=== PATIENT | male | born 1980 | race Caucasian/White ===

== ENCOUNTER 2020-08-11 13:29 | Outpatient (CLI) | payer SELFPAY | END 2020-08-11 13:30 | disposition critical access hospital (66) | LOC: EMS 13:29 | PROVIDERS: ATTEND Surgery | DX: S06.9X1A Unspecified intracranial injury with loss of consciousness of 30 minutes or less, initial encounter (principal); V13.4XXA Pedal cycle driver injured in collision with car, pick-up truck or van in traffic accident, initial encounter; Y93.55 Activity, bike riding; Y92.410 Unspecified street and highway as the place of occurrence of the external cause | CPT/HCPCS: A0425; A0427 ==

== ENCOUNTER 2020-08-11 14:36 | Emergency (ER) | payer SELFPAY ==
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
[2020-08-11 14:52] LABS: BASOPHILS # (AUTO) 0.1 10^3/uL (0.0-0.1); BASOPHILS % (AUTO) 1.4 %; EOSINOPHILS # (AUTO) 0.1 10^3/uL (0.0-0.7); EOSINOPHILS % (AUTO) 1.2 %; LYMPHOCYTES # (AUTO) 1.6 10^3/uL (1.5-3.5); LYMPHOCYTES % (AUTO) 31.7 %; MEAN CORPUSCULAR HEMOGLOBIN 34.9 pg (27.0-31.0); MEAN CORPUSCULAR VOLUME 102.7 fL (80.0-94.0); MEAN PLATELET VOLUME 8.6 fL (7.4-11.4); MONOCYTES # (AUTO) 0.6 10^3/uL (0.0-1.0); MONOCYTES % (AUTO) 11.7 %; NEUTROPHILS # (AUTO) 2.8 10^3/uL (1.5-6.6); NEUTROPHILS % (AUTO) 53.8 %; PLT - PLATELET COUNT 179 10^3/uL (130-450); RED BLOOD COUNT 4.01 10^6/uL (4.70-6.10); RED CELL DISTRIBUTION WIDTH 12.5 % (12.0-15.0); WHITE BLOOD COUNT 5.1 x10^3/uL (4.8-10.8)
[2020-08-11 14:58] LABS: PT - PROTHROMBIN TIME 10.9 secs (9.9-12.6)
[2020-08-11 15:00] LABS: CALCIUM 8.6 mg/dL (8.5-10.3); CREATININE 0.7 mg/dL (0.6-1.2)
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
--- NOTE | 2020-08-11 15:17 | CT Report ---
PROCEDURE: HEAD WO INDICATIONS: head injury TECHNIQUE: Noncontrast 4.5 mm thick angled axial sections acquired from the foramen magnum to the vertex. For r adiation dose reduction, the following was used: automated exposure control, adjustment of mA and/or kV according to patient size. COMPARISON: None. FINDINGS: Image quality: Excellent. CSF spaces: Basal cisterns are patent. No extra-axial fluid collections. Ventricles are normal in size and shape. Brain: No midline shift. No intracranial masses or hemorrhage. Mckenzie-white matter interface is norm al. Skull and face: Calvarium and visualized facial bones are intact, without suspicious lesions. Left t emporal scalp laceration and hematoma. Sinuses: Visualized sinuses and mastoids are clear. IMPRESSION: 1. Left temporal scalp hematoma and laceration. 2. Negative for acute stroke, hemorrhage, or mass. No evidence of significant sequelae of acute intra cranial trauma. Reviewed by: Roderick Simpson MD on 08/11/2020 3:16 PM PDT Approved by: Roderick Simpson MD on 08/11/2020 3:16 PM PDT Station ID: [id number]
[2020-08-11 16:34] VITALS: BP 119/80
== END 2020-08-11 16:42 | disposition home or self-care (01) ==
LOC: EDUNIT# → ED 14:36
DX: S01.81XA Laceration without foreign body of other part of head, initial encounter (principal); S06.0X1A Concussion with loss of consciousness of 30 minutes or less, initial encounter; R40.2412 Glasgow coma scale score 13-15, at arrival to emergency department; V89.2XXA Person injured in unspecified motor-vehicle accident, traffic, initial encounter; Y93.55 Activity, bike riding; Y92.410 Unspecified street and highway as the place of occurrence of the external cause; F10.129 Alcohol abuse with intoxication, unspecified; F17.200 Nicotine dependence, unspecified, uncomplicated; Y90.8 Blood alcohol level of 240 mg/100 ml or more
CPT/HCPCS: 12013; 36415; 70450; 72125; 80048; 80320; 85025; 85610; 99283; 99284

== ENCOUNTER 2021-06-21 16:29 | Outpatient (CLI) | payer MEDICAID | END 2021-06-21 16:30 | disposition critical access hospital (66) | LOC: EMS 16:29 | DX: R40.4 Transient alteration of awareness (principal); R51.9 Headache, unspecified; V18.4XXA Pedal cycle driver injured in noncollision transport accident in traffic accident, initial encounter; Y93.55 Activity, bike riding; Y92.410 Unspecified street and highway as the place of occurrence of the external cause | CPT/HCPCS: A0425; A0429; A0999 ==

== ENCOUNTER 2021-06-21 17:02 | Emergency (ER) | payer MEDICAID ==
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
[2021-06-21] MEDS ORDERED: IBUPROFEN 600 MG TABLET PO STA (17:11)
[2021-06-21] MEDS ORDERED: ACETAMINOPHEN 325 MG TABLET PO STA (17:11)
[2021-06-21 17:28] LABS: BASOPHILS # (AUTO) 0.1 10^3/uL (0.0-0.1); BASOPHILS % (AUTO) 1.7 %; EOSINOPHILS # (AUTO) 0.1 10^3/uL (0.0-0.7); EOSINOPHILS % (AUTO) 1.7 %; HCT - HEMATOCRIT 39.2 % (42.0-52.0); HGB - HEMOGLOBIN 13.3 g/dL (14.0-18.0); LYMPHOCYTES # (AUTO) 1.4 10^3/uL (1.5-3.5); LYMPHOCYTES % (AUTO) 40.6 %; MEAN CORPUSCULAR HEMOGLOBIN 33.9 pg (27.0-31.0); MEAN CORPUSCULAR HGB CONC 33.9 g/dL (32.0-36.0); MONOCYTES # (AUTO) 0.6 10^3/uL (0.0-1.0); MONOCYTES % (AUTO) 15.9 %; NEUTROPHILS # (AUTO) 1.4 10^3/uL (1.5-6.6); NEUTROPHILS % (AUTO) 39.8 %; PLT - PLATELET COUNT 128 10^3/uL (130-450); RED BLOOD COUNT 3.92 10^6/uL (4.70-6.10); RED CELL DISTRIBUTION WIDTH 13.1 % (12.0-15.0); WHITE BLOOD COUNT 3.5 x10^3/uL (4.8-10.8)
[2021-06-21 17:41] LABS: ALBUMIN 4.1 g/dL (3.2-5.5); ALBUMIN/GLOBULIN RATIO 1.1 (1.0-2.2); BILIRUBIN,TOTAL 0.5 mg/dL (0.2-1.0); CALCIUM 8.6 mg/dL (8.5-10.3); CREATININE 0.6 mg/dL (0.6-1.2); POTASSIUM 3.8 mmol/L (3.5-5.0); TOTAL PROTEIN 7.7 g/dL (6.7-8.2)
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
[2021-06-21 18:07] VITALS: BP 124/98
== END 2021-06-21 18:06 | disposition home or self-care (01) ==
LOC: EDUNIT# → ED 17:02
DX: S06.0X1A Concussion with loss of consciousness of 30 minutes or less, initial encounter (principal); S42.034A Nondisplaced fracture of lateral end of right clavicle, initial encounter for closed fracture; S16.1XXA Strain of muscle, fascia and tendon at neck level, initial encounter; M79.652 Pain in left thigh; V18.0XXA Pedal cycle driver injured in noncollision transport accident in nontraffic accident, initial encounter; Y93.55 Activity, bike riding; Y92.410 Unspecified street and highway as the place of occurrence of the external cause; F10.920 Alcohol use, unspecified with intoxication, uncomplicated
CPT/HCPCS: 36415; 70450; 72125; 73030; 80053; 80320; 83690; 85025; 99284; A9270

== ENCOUNTER 2021-06-30 14:30 | Emergency (ER) | payer MEDICAID ==
[2021-06-30 14:48] VITALS: BP 116/74
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
== END 2021-06-30 16:34 | disposition home or self-care (01) ==
LOC: ED 14:30
DX: S80.12XA Contusion of left lower leg, initial encounter (principal); V19.9XXA Pedal cyclist (driver) (passenger) injured in unspecified traffic accident, initial encounter; Y93.55 Activity, bike riding; Y92.410 Unspecified street and highway as the place of occurrence of the external cause; F17.200 Nicotine dependence, unspecified, uncomplicated
CPT/HCPCS: 99281; 99284

== ENCOUNTER 2024-10-20 12:57 | Inpatient (IN) ==
[2024-10-20 13:43] LABS: BASOPHILS # (AUTO) 0.1 10^3/uL (0.0-0.1); BASOPHILS % (AUTO) 0.3 %; EOSINOPHILS # (AUTO) 0.4 10^3/uL (0.0-0.7); EOSINOPHILS % (AUTO) 1.5 %; HCT - HEMATOCRIT 36.7 % (42.0-52.0); HGB - HEMOGLOBIN 12.8 g/dL (14.0-18.0); LYMPHOCYTES # (AUTO) 1.6 10^3/uL (1.5-3.5); LYMPHOCYTES % (AUTO) 6.5 %; MEAN CORPUSCULAR HEMOGLOBIN 34.5 pg (27.0-31.0); MEAN CORPUSCULAR HGB CONC 34.9 g/dL (32.0-36.0); MEAN CORPUSCULAR VOLUME 98.9 fL (80.0-94.0); MEAN PLATELET VOLUME 9.4 fL (7.4-11.4); MONOCYTES # (AUTO) 1.9 10^3/uL (0.0-1.0); MONOCYTES % (AUTO) 7.7 %; NEUTROPHILS # (AUTO) 20.1 10^3/uL (1.5-6.6); NEUTROPHILS % (AUTO) 83.1 %; NRBC ABSOLUTE COUNT (AUTO) 0.08 x10^3/uL; NUCLEATED RED BLOOD CELLS AUTO 0.3 /100WBC; PLT - PLATELET COUNT 200 10^3/uL (130-450); RED BLOOD COUNT 3.71 10^6/uL (4.70-6.10); RED CELL DISTRIBUTION WIDTH 13.5 % (12.0-15.0); WHITE BLOOD COUNT 24.2 x10^3/uL (4.8-10.8)
[2024-10-20 13:50] LABS: SLIDE REVIEW? Indicated
[2024-10-20 13:57] LABS: ALBUMIN 3.5 g/dL (3.2-5.5); ALBUMIN/GLOBULIN RATIO 0.9 (1.0-2.2); ALKALINE PHOSPHATASE 129 IU/L (42-121); ALT ALANINE AMINOTRANSFERASE 20 IU/L (10-60); AST ASPARTATE AMINOTRANSFERASE 43 IU/L (10-42); BILIRUBIN,TOTAL 1.9 mg/dL (0.2-1.0); BUN - BLOOD UREA NITROGEN 6 mg/dL (6-20); CALCIUM 8.7 mg/dL (8.5-10.3); CARBON DIOXIDE - CO2 33 mmol/L (21-32); CHLORIDE 88 mmol/L (101-111); CREATININE 0.5 mg/dL (0.6-1.3); ETOH - ETHANOL < 10.0 mg/dL; GFR - MDRD 181 (>89); GLUCOSE 142 mg/dL (74-104); LIPASE 22 U/L (11-82); MAGNESIUM 1.5 mg/dL (1.7-2.3); POTASSIUM 2.7 mmol/L (3.5-4.5); SODIUM 132 mmol/L (135-145); TOTAL PROTEIN 7.3 g/dL (6.4-8.9)
[2024-10-20 14:01] LABS: PLATELET ESTIMATE, MANUAL NORMAL (130-450,000) (NORMAL); PLATELET MORPHOLOGY NORMAL APPEARANCE (NORMAL); RBC MORPHOLOGY (MULTIPLE) 2+ HYPOCHROMASIA (NORMAL)
[2024-10-20] MEDS: SODIUM CHLORIDE 0.9% 1,000 ML IV STA (14:11)
[2024-10-20 14:12] LABS: THYROID STIMULATING HORMONE 1.29 uIU/mL (0.34-5.60)
--- NOTE | 2024-10-20 15:06 | ED Physician Documentation ---
History of Present Illness Stated complaint Stated Complaint: ETOH N/V Chief complaint Chief Complaint: Abd Pain Additonal information Additional information: 44YO MALE WITH HX ETOH. SICK X 9 DAYS WITH SUBJECTIVE FEVERS, GENERALLY ILL, VOMITING. NO COUGH, SORE THROAT, BM CHG, SOA, ABD PAIN. LAST DRINK JUST BALL[employer]IST. Meds/Allgy Home Medications Ambulatory Orders Medication Instructions Recorded Confirmed No Known Home Medications 06/21/21 10/20/24 Allergies Allergies Allergy/AdvReac Type Severity Reaction Status Date / Time No Known Drug Allergies Allergy Verified 10/20/24 13:29 [facility] Medical History Medical History (Updated 10/20/24 @ 21:08 by Gianfranco Davis MD) IBS (irritable bowel syndrome) Social History Social History (Updated 10/20/24 @ 13:34 by Adam Melvin RN) Smoking Status: Current every day smoker Living arrangement: At home Living Condition: Alone and With spouse/s.o. Support Person: Yes Relationship: Significant other Do you feel safe in your home environment?: Yes Suffered physical, verbal, emotional, or financial abuse?: No History of Abuse: No ETOH Use: Frequency: Daily Number of Amount/day: 10 Substance Use: cannabis (any form) POLST Patient has POLST: No Exam Constitutional V MILD ENCEPHALOPATHY THIN HENMT normocephalic and oropharynx normal Eyes PERRL and EOMs intact bilaterally Respiratory DIMINISHED THROUGHOUT, MILD RHONCHI, NON LABORED Cardiovascular normal heart rate noted, regular rhythm noted and no murmur Gastrointestinal abdomen soft to palpation and nontender to palpation Neurology V MILD ENCEPHALOPATHY, NOT TREMULOUS Results Vitals Vitals: Vital Signs - 24 hr 10/20/24 13:30 10/20/24 13:35 10/20/24 15:35 Temperature 36 C L Temperature Source Temporal Artery Scan Pulse Rate 88 86 88 Respiratory Rate 18 18 16 Blood Pressure 137/85 H 109/82 115/82 O2 Saturation 98 98 99 O2 Source Room air Room air Room air Pain Intensity 0 2 0 10/20/24 17:35 10/20/24 19:13 Temperature Temperature Source Pulse Rate 89 90 Respiratory Rate 14 16 Blood Pressure 117/84 119/72 O2 Saturation 98 98 O2 Source Room air Room air Pain Intensity 0 0 Oxygen O2 Source Room air EKG (time done) 1341: EKG releavant findings:: EKG personally interpreted by author of this note. Relevant findings are: Normal sinus rhythm with a rate of 92. Short WV interval. IVCD, abnormal T waves and prolonged QT. In retrospect this could all be due to electrolyte issues. Labs Labs: Laboratory Tests 10/20/24 10/20/24 10/20/24 13:37 15:14 18:11 WBC 24.2 H 21.8 H RBC 3.71 L 3.60 L Hgb 12.8 L 12.6 L Hct 36.7 L 35.7 L MCV 98.9 H 99.2 H MCH 34.5 H 35.0 H MCHC 34.9 35.3 RDW 13.5 13.4 Plt Count 200 193 MPV 9.4 9.7 Neut # (Auto) 20.1 H Lymph # (Auto) 1.6 [place] # (Auto) 1.9 H Eos # (Auto) 0.4 Baso # (Auto) 0.1 Absolute Nucleated RBC 0.08 Nucleated RBC % 0.3 Manual Slide Review Indicated Platelet Estimate NORMAL (130-450,000) Platelet Morphology NORMAL APPEARANCE RBC Morph Micro Appear 2+ HYPOCHROMASIA VBG pH 7.485 H VBG pCO2 43.9 VBG pO2 26.1 VBG HCO3 32.3 H VBG Total CO2 33.7 H VBG O2 Saturation 44.9 L VBG Base Excess 8.0 H Sodium 132 L 132 L Potassium 2.7 L 2.9 L Chloride 88 L 91 L Carbon Dioxide 33 H 32 Anion Gap 11.0 9.0 BUN 6 5 L Creatinine 0.5 L 0.4 L Estimated GFR (MDRD) 181 234 Glucose 142 H 128 H Lactic Acid 2.2 Calcium 8.7 8.1 L Magnesium 1.5 L Total Bilirubin 1.9 H AST 43 H ALT 20 Alkaline Phosphatase 129 H Total Protein 7.3 Albumin 3.5 Globulin 3.8 Albumin/Globulin Ratio 0.9 L Lipase 22 Vitamin B12 432 Folate 3.5 L Procalcitonin Immunoas 0.36 TSH 1.29 Urine Color Urine Clarity Urine pH Ur Specific [place] Urine Protein Urine Glucose (UA) Urine Ketones Urine Occult Blood Urine Nitrite Urine Bilirubin Urine Urobilinogen Ur Leukocyte Esterase Ur Microscopic Review Urine Culture Comments Urine Opiates Screen Ur Buprenorphine Scrn Ur Oxycodone Screen Urine Methadone Screen Ur Barbiturates Screen Ur Tricyclics Screen Ur Phencyclidine Scrn Ur Amphetamine Screen U Methamphetamines Scrn U Benzodiazepines Scrn Urine Cocaine Screen U Cannabinoids Screen Ur Drug Screen Comment Ethyl Alcohol < 10.0 10/20/24 18:55 WBC RBC Hgb Hct MCV MCH MCHC RDW Plt Count MPV Neut # (Auto) Lymph # (Auto) [place] # (Auto) Eos # (Auto) Baso # (Auto) Absolute Nucleated RBC Nucleated RBC % Manual Slide Review Platelet Estimate Platelet Morphology RBC Morph Micro Appear VBG pH VBG pCO2 VBG pO2 VBG HCO3 VBG Total CO2 VBG O2 Saturation VBG Base Excess Sodium Potassium Chloride Carbon Dioxide Anion Gap BUN Creatinine Estimated GFR (MDRD) Glucose Lactic Acid Calcium Magnesium Total Bilirubin AST ALT Alkaline Phosphatase Total Protein Albumin Globulin Albumin/Globulin Ratio Lipase Vitamin B12 Folate Procalcitonin Immunoas TSH Urine Color DARK YELLOW Urine Clarity CLEAR Urine pH 7.0 Ur Specific [place] 1.015 Urine Protein NEGATIVE Urine Glucose (UA) 100 H Urine Ketones TRACE Urine Occult Blood NEGATIVE Urine Nitrite NEGATIVE Urine Bilirubin SMALL H Urine Urobilinogen >=8.0 H Ur Leukocyte Esterase NEGATIVE Ur Microscopic Review NOT INDICATED Urine Culture Comments NOT INDICATED Urine Opiates Screen NEGATIVE Ur Buprenorphine Scrn NEGATIVE Ur Oxycodone Screen NEGATIVE Urine Methadone Screen NEGATIVE Ur Barbiturates Screen NEGATIVE Ur Tricyclics Screen NEGATIVE Ur Phencyclidine Scrn NEGATIVE Ur Amphetamine Screen NEGATIVE U Methamphetamines Scrn NEGATIVE U Benzodiazepines Scrn NEGATIVE Urine Cocaine Screen NEGATIVE U Cannabinoids Screen POSITIVE H Ur Drug Screen Comment CUTOFF CONC BELOW: Ethyl Alcohol Rads (name of study) Single view chest x-ray showing mildly hyperexpanded lungs but no acute disease.: Relevant Findings:: Final report received and EMP independent interpretation of test CT Head- NAD: Relevant Findings:: Final report received and EMP independent interpretation of test PD Medical Decision Making ED course ED course: 44-year-old gentleman with alcoholism presents with nonspecific symptoms and is found to have significantly elevated white count, some fairly significant abnormal electrolytes, most notably sodium 132, potassium 2.7, magnesium 1.5. He was administered IV fluids. I do not see a source of infection, but the white count is concerning so blood cultures were drawn. Patient offered admission to the hospital but would like to go home, will give him a few K- riders and recheck a BMP. His repeat BMP showed improvement of his potassium. His folate was low and this was repleted IV. He was reexamined at 7 PM. He still said he wanted to go home but his girlfriend was at the bedside noted that he was quite confused and now. He was queried on location. He said he was in a house [address] [place]." And said that he was going on a plane to [place] when the girlfriend said there were no such plans. He was shaky and has nystagmus without ocular plegia otherwise. So now concern for differential DTs versus Warnicke encephalopathy. Will obtain CT imaging, give high-dose thiamine, Ativan, and plan for admission to the hospital. Spoke with Dr. Padgett for admission at 9:17 PM. He plans to put h him in the ICU concerned that he may decompensate in short order. The patient and family are counseled as to the diagnosis and need for admission. This document was made in part using voice recognition software, while efforts are made to proofread this document, sound alike an grammatical errors may occur. Discharge Plan Discharge Patient Disposition: [facility] DC/Xfer Condition: Serious Clinical Impression: Delirium tremens Prescriptions: No Action No Known Home Medications Print Language: Jordanian
[2024-10-20] MEDS: MAGNESIUM SULFATE 2 GRAM 2 GM/50 ML BAG IV ONE (15:18)
[2024-10-20] MEDS: POTASSIUM CHLOR 10 MEQ/100 ML 10 MEQ/100 ML BAG IV SCH ×2 (15:18→18:28)
--- NOTE | 2024-10-20 15:24 | XRAY Report ---
PROCEDURE: XR Chest 1V INDICATIONS: COUGH FEVER TECHNIQUE: One view of the chest was acquired. COMPARISON: None. FINDINGS: Surgical changes and devices: None. Lungs and pleura: No pleural effusions or pneumothorax. No consolidation. Mediastinum: Mediastinal contours appear normal. Heart size is normal. Bones and chest wall: No suspicious bony lesions. Overlying soft tissues appear unremarkable. IMPRESSION: No acute cardiopulmonary process. Reviewed by: Stevie Nuno MD on 10/20/2024 3:23 PM PST Approved by: Stevie Nuno MD on 10/20/2024 3:23 PM PST Station ID: [id number]
[2024-10-20 15:32] LABS: VBG PCO2 43.9 mmHg (41-51); VBG PH 7.485 (7.31-7.41)
[2024-10-20 15:33] LABS: VBG HCO3 32.3 mmol/L (23-28); VBG OXYGEN SATURATION 44.9 % (60-80); VBG PO2 26.1 mmHg (25-47); VBG TOTAL CO2 33.7 mmol/L (24-29)
[2024-10-20] MEDS ORDERED: POTASSIUM BICARB 25 MEQ TABLET PO STA (16:04)
[2024-10-20 18:15] LABS: HCT - HEMATOCRIT 35.7 % (42.0-52.0); HGB - HEMOGLOBIN 12.6 g/dL (14.0-18.0); MEAN CORPUSCULAR HGB CONC 35.3 g/dL (32.0-36.0); MEAN CORPUSCULAR VOLUME 99.2 fL (80.0-94.0); MEAN PLATELET VOLUME 9.7 fL (7.4-11.4); RED BLOOD COUNT 3.6 10^6/uL (4.70-6.10); RED CELL DISTRIBUTION WIDTH 13.4 % (12.0-15.0); WHITE BLOOD COUNT 21.8 x10^3/uL (4.8-10.8)
[2024-10-20 18:28] LABS: CALCIUM 8.1 mg/dL (8.5-10.3); CREATININE 0.4 mg/dL (0.6-1.3); POTASSIUM 2.9 mmol/L (3.5-4.5)
[2024-10-20] MEDS: FOLIC ACID 5 MG/1 ML 10ML MDV IVP STA (18:30)
[2024-10-20] MEDS: POTASSIUM BICARB 25 MEQ TABLET PO STA (18:31)
[2024-10-20 19:00] LABS: BILIRUBIN,URINE SMALL (NEGATIVE); GLUCOSE, URINE (UA) 100 mg/dL (NEGATIVE); KETONES,URINE (UA) TRACE mg/dL (NEGATIVE); LEUKOCYTE ESTERASE, URINE NEGATIVE (NEGATIVE); NITRITE,URINE NEGATIVE (NEGATIVE); OCCULT BLOOD,URINE NEGATIVE (NEGATIVE); PROTEIN,URINE NEGATIVE (NEGATIVE); UROBILINOGEN,URINE >=8.0 E.U./dL (NORMAL)
[2024-10-20 19:03] LABS: CLARITY,URINE CLEAR (CLEAR)
[2024-10-20 19:12] LABS: THC CANNABINOID SCREEN, URINE POSITIVE (NEGATIVE)
[2024-10-20 19:13] LABS: AMPHETAMINE SCREEN,URINE NEGATIVE (NEGATIVE); BARBITURATE SCREEN,UR NEGATIVE (NEGATIVE); BENZODIAZEPINES SCREEN, URINE NEGATIVE (NEGATIVE); BUPRENORPHINE SCREEN, URINE NEGATIVE (NEGATIVE); COCAINE SCREEN URINE NEGATIVE (NEGATIVE); METHADONE SCREEN, URINE NEGATIVE (NEGATIVE); METHAMPHETAMINES SCREEN, URINE NEGATIVE (NEGATIVE); OPIATE SCREEN, URINE NEGATIVE (NEGATIVE); OXYCODONE SCREEN, URINE NEGATIVE (NEGATIVE); TRICYCLIC ANTIDEPRESSANT,URINE NEGATIVE (NEGATIVE)
[2024-10-20] MEDS ORDERED: THIAMINE 100 MG/1 ML 2 ML MDV ONE (19:26)
[2024-10-20] MEDS: LORazepam 2 MG/ML VIAL IVP STA (19:31)
[2024-10-20] MEDS: THIAMINE INJ 500 MG in SODIUM CHLORIDE 0.9% 50 ML IV STA (19:31)
[2024-10-20] MEDS: NICOTINE 14 MG PATCH TOP STA (21:00)
--- NOTE | 2024-10-20 21:16 | CT Report ---
PROCEDURE: CT Head WO INDICATIONS: ams TECHNIQUE: Noncontrast 4.5 mm thick angled axial sections acquired from the foramen magnum to the vertex. For r adiation dose reduction, the following was used: automated exposure control, adjustment of mA and/or kV according to patient size. COMPARISON: CT head 06/21/21 FINDINGS: Image quality: Excellent. CSF spaces: Basal cisterns are patent. No extra-axial fluid collections. Ventricles are normal in size and shape. Brain: No midline shift. No intracranial masses or hemorrhage. Mckenzie-white matter interface is norm al. Skull and face: Calvarium and visualized facial bones are intact, without suspicious lesions. Sinuses: Visualized sinuses and mastoids are clear. IMPRESSION: No acute intracranial pathology. Reviewed by: Vaishnavi Gray MD on 10/20/2024 9:14 PM PST Approved by: Vaishnavi Gray MD on 10/20/2024 9:14 PM PST Station ID: [id number]
[2024-10-20] MEDS ORDERED: ONDANSETRON 4 MG/2 ML VIAL IVP PRN (21:21)
[2024-10-20] MEDS ORDERED: oxyCODONE 5 MG TABLET PO PRN (21:21)
--- NOTE | 2024-10-20 21:42 | HISTORY & PHYSICAL EXAMINATION ---
Chief Complaint Chief Complaint Chief Complaint: Not feeling welll History of Present Illness Admitted From Admitted From:: home History Obtained From Records Reviewed: Yes History obtained from: EMR and ED team Exam Limitations: Patient not able to engage in history was asleep History of Present Illness HPI Comment/Other: 44 yr male comes with complaints of not feeling well for last 9 days, no meds at home lives with girlfriend has been drinking in a daily basis, last drink prior to admission was initially thought to be dc home but later found to have luekocytosis and encpahopahty and is going to be admitted for observationfor impending DT as well as Leukocytosis and encphalopathy Paitent looks comfortable and resting when seen televideo Review of Systems Status of ROS: 10 or more systems reviewed and unremarkable except as noted in history and below [facility] Medical History Medical History (Updated 10/20/24 @ 21:08 by Gianfranco Davis MD) IBS (irritable bowel syndrome) Social History Social History Smoking Status: Current every day smoker Living arrangement: At home Living Condition: Alone and With spouse/s.o. Support Person: Yes Relationship: Significant other Do you feel safe in your home environment?: Yes Suffered physical, verbal, emotional, or financial abuse?: No History of Abuse: No ETOH Use: Frequency: Daily Number of Amount/day: 10 Substance Use: cannabis (any form) POLST Patient has POLST: No POLST Status: Full Code Meds/Allgy Home Medications Ambulatory Orders Medication Instructions Recorded Confirmed No Known Home Medications 06/21/21 10/20/24 Allergies Allergies Allergy/AdvReac Type Severity Reaction Status Date / Time No Known Drug Allergies Allergy Verified 10/20/24 13:29 Prior Level of Functionality: iNDEPENDENT WITH adl Exam Constitutional normal general appearance and no apparent distress Eyes PERRL and EOMs intact bilaterally Neck/C-Spine visual inspection normal and trachea midline Lymph no lymphadenopathy noted and no lymphedema noted Chest inspection of chest normal Respiratory breath sounds equal bilaterally, normal respiratory effort and clear to auscultation bilaterally Cardiovascular normal heart rate noted and regular rhythm noted Gastrointestinal abdomen normal to inspection and abdomen soft to palpation Genitourinary no CVA tenderness and bladder normal to palpation Extremities normal to inspection and normal to palpation Neurology nutter up II-XII intact and no movement abnormality noted Psychiatry uNABLE TO OBTAIN Skin skin color normal and no rash Conclusion/Plan Problem List (1) Delirium tremens: Plan: 44 YR MIDDLE age male admitted with impression 1. ETOH dependence 2.r/o htn 3. severe electrolyte imbalance 4. Leukocytosis 5. Generalized tremots and encepahlopathy Plan admit to ICU for close observation and one to one care repeat electroytes continue drive Ativan prn empiric abx follow up cultures optimizedelectrolytes downgrade cfromICU anticipated in next 24 hours SCD Full code Fall precuations Plan as above Lab Results Lab results reviewed: Yes 10/20/24 18:11 10/20/24 18:11
[2024-10-20] MEDS: NS W/20 MEQ KCL 1,000 ML IV SCH (22:36)
[2024-10-20] MEDS: SODIUM CHLORIDE FLUSH 0.9% 10 ML SYRINGE IVP PRN (22:36)
[2024-10-20] MEDS: PIPERACILLIN/TAZOBACTAM 3.375 GM in SODIUM CHLORIDE 0.9% MINIBAG 100 ML IV STA (22:53)
[2024-10-20] MEDS: VANCOMYCIN INJ 1 GM in SODIUM CHLORIDE 0.9% 500 ML IV STA (22:56)
[2024-10-20] MEDS: POTASSIUM CHLORIDE 20 MEQ TABLET PO STA (22:57)
[2024-10-21] MEDS: LORazepam 2 MG/ML VIAL IVP SCH (00:38)
[2024-10-21] MEDS: SODIUM CHLORIDE FLUSH 0.9% 10 ML SYRINGE IVP SCH (00:39)
[2024-10-21 04:44] LABS: VBG PH 7.527 (7.31-7.41)
[2024-10-21 04:45] LABS: CALCIUM, IONIZED 1.04 mmol/L (1.15-1.33)
[2024-10-21 04:47] LABS: BASOPHILS # (AUTO) 0.1 10^3/uL (0.0-0.1); BASOPHILS % (AUTO) 0.5 %; EOSINOPHILS # (AUTO) 0.5 10^3/uL (0.0-0.7); HGB - HEMOGLOBIN 10.9 g/dL (14.0-18.0); LYMPHOCYTES # (AUTO) 1.9 10^3/uL (1.5-3.5); LYMPHOCYTES % (AUTO) 11.3 %; MEAN CORPUSCULAR HEMOGLOBIN 34.5 pg (27.0-31.0); MEAN CORPUSCULAR HGB CONC 34.1 g/dL (32.0-36.0); MEAN CORPUSCULAR VOLUME 101.3 fL (80.0-94.0); MEAN PLATELET VOLUME 10.3 fL (7.4-11.4); MONOCYTES # (AUTO) 1.3 10^3/uL (0.0-1.0); MONOCYTES % (AUTO) 7.7 %; NEUTROPHILS # (AUTO) 12.8 10^3/uL (1.5-6.6); NEUTROPHILS % (AUTO) 76.5 %; NRBC ABSOLUTE COUNT (AUTO) 0.05 x10^3/uL; NUCLEATED RED BLOOD CELLS AUTO 0.3 /100WBC; PLT - PLATELET COUNT 179 10^3/uL (130-450); RED BLOOD COUNT 3.16 10^6/uL (4.70-6.10); RED CELL DISTRIBUTION WIDTH 13.8 % (12.0-15.0); WHITE BLOOD COUNT 16.8 x10^3/uL (4.8-10.8)
[2024-10-21 05:02] LABS: ALBUMIN 2.9 g/dL (3.2-5.5); ALBUMIN/GLOBULIN RATIO 0.9 (1.0-2.2); BILIRUBIN,TOTAL 1.2 mg/dL (0.2-1.0); CALCIUM 7.7 mg/dL (8.5-10.3); CREATININE 0.4 mg/dL (0.6-1.3); MAGNESIUM 1.9 mg/dL (1.7-2.3); POTASSIUM 3.6 mmol/L (3.5-4.5)
[2024-10-21] MEDS: CALCIUM GLUC 1,000MG/50ML-NACL 1,000 MG/50 ML BAG IV ONE ×2 (05:18→09:39)
[2024-10-21] MEDS: POTASSIUM CHLORIDE 20 MEQ TABLET PO ONE (06:10)
[2024-10-21] MEDS: PANTOPRAZOLE 40 MG TABLET PO SCH (06:10)
--- NOTE | 2024-10-21 09:03 | PROVIDER PROGRESS NOTE ---
Subjective Prog Note Date Prog Note Date: 10/21/24 Prog Note Time: 09:03 Subjective Subjective: 44 yr male comes with complaints of not feeling well for last 9 days, no meds at home lives with girlfriend has been drinking in a daily basis, last drink prior to admission was initially thought to be dc home but later found to have luekocytosis and encpahopahty and is going to be admitted for observationfor impending DT as well as Leukocytosis and encphalopathy Paitent looks comfortable and resting when seen televideo 10/21/2024: Patient is lethargic, he has no complaints. Patient Required 3 mg of Ativan over the last 16 hours. Current Medications Current Medications Current Medications: Current Medications Generic Name Dose Route Start Last Admin Trade Name Freq PRN Reason Stop Dose Admin Acetaminophen 650 mg 10/20/24 21:21 Acetaminophen 325 Mg Tablet PO Q4HR PRN Pain 1 to 4, or Fever Hydrocodone Bitart/Acetaminophen 1 tab 10/20/24 21:21 Hydrocod/Acetam 5/325 Mg Tablet PO Q4HR PRN Pain 5 to 7 Potassium Chloride/Sodium Chloride 1,000 mls @ 100 mls/hr 10/20/24 22:00 10/20/24 22:36 Normal Saline 0.9% W/20 Meq Kcl IV 100 mls/hr .Q10H SHARRON Administration Lorazepam 1 mg 10/21/24 00:00 10/21/24 06:11 Lorazepam 2 Mg/Ml Vial IVP 1 mg Q6HR SHARRON Administration Ondansetron HCl 4 mg 10/20/24 21:21 Ondansetron 4 Mg/2 Ml Vial IVP Q6HR PRN Nausea / Vomiting Oxycodone HCl 10 mg 10/20/24 21:21 Oxycodone 5 Mg Tablet PO Q4HR PRN Pain 8 to 10 Pantoprazole Sodium 40 mg 10/21/24 07:00 10/21/24 06:10 Pantoprazole 40 Mg Tablet PO 40 mg QDAC SHARRON Administration Sodium Chloride 10 ml 10/21/24 01:00 10/21/24 00:39 Sodium Chloride Flush 0.9% 10 Ml Syringe IVP 10 ml 0100,0900,1700 SHARRON Administration Sodium Chloride 10 ml 10/20/24 21:21 10/21/24 06:11 Sodium Chloride Flush 0.9% 10 Ml Syringe IVP 10 ml PRN PRN Administration NEEDED PER PROVIDER ORDERS Objective Vital Signs/Intake & Output Reviewed Vital Signs: Yes Vital Signs: Vital Signs x48h Temp Pulse Resp BP Pulse Ox 10/21/24 06:46 103 H 24 110/80 96 10/21/24 06:00 102 H 20 113/78 95 10/21/24 05:00 95 17 107/75 96 10/21/24 04:00 92 17 106/77 96 10/21/24 03:00 94 19 102/79 97 10/21/24 02:00 36.8 C 99 28 H 104/78 96 10/21/24 01:00 89 17 128/80 99 10/21/24 00:00 36.8 C 84 14 128/80 97 Intake & Output: Intake & Output 10/18/24 10/19/24 10/20/24 10/21/24 23:59 23:59 23:59 23:59 Intake Total 1450 / 1450 750 / 750 Output Total 500 / 500 Balance 1450 / 1450 250 / 250 Weight (kg) 60 kg 62 kg Objective General Appearance: positive No acute distress and Alert Eyes Bilateral: positive Normal inspection and PERRL ENT: positive ENT inspection nml and Pharynx nml Neck: positive Nml inspection and Trachea midline Respiratory: positive Chest non-tender and No respiratory distress Cardiovascular: positive Regular rate & rhythm and No murmur Abdomen: positive Non-tender, No organomegaly and No distention Skin: positive Color nml and No rash Extremities: positive Non-tender and Full ROM Neurologic/Psychiatric: positive Oriented x3 and CN's nml (2-12) Lab Results 10/21/24 04:18 10/21/24 04:18 Other Labs: Lab Results x24hrs 10/21/24 10/20/24 10/20/24 Range/Units 04:18 22:30 18:55 WBC 16.8 H (4.8-10.8) x10^3/uL RBC 3.16 L (4.70-6.10) 10^6/uL Hgb 10.9 L (14.0-18.0) g/dL Hct 32.0 L (42.0-52.0) % MCV 101.3 H (80.0-94.0) fL MCH 34.5 H (27.0-31.0) pg MCHC 34.1 (32.0-36.0) g/dL RDW 13.8 (12.0-15.0) % Plt Count 179 (130-450) 10^3/uL MPV 10.3 (7.4-11.4) fL Neut # (Auto) 12.8 H (1.5-6.6) 10^3/uL Lymph # (Auto) 1.9 (1.5-3.5) 10^3/uL [place] # (Auto) 1.3 H (0.0-1.0) 10^3/uL Eos # (Auto) 0.5 (0.0-0.7) 10^3/uL Baso # (Auto) 0.1 (0.0-0.1) 10^3/uL Absolute Nucleated RBC 0.05 x10^3/uL Nucleated RBC % 0.3 /100WBC Manual Slide Review Platelet Estimate (NORMAL) Platelet Morphology (NORMAL) RBC Morph Micro Appear (NORMAL) VBG pH 7.527 H (7.31-7.41) VBG pCO2 (41-51) mmHg VBG pO2 (25-47) mmHg VBG HCO3 (23-28) mmol/L VBG Total CO2 (24-29) mmol/L VBG O2 Saturation (60-80) % VBG Base Excess (-2 - +2) mmol/L Ionized Calcium 1.04 L (1.15-1.33) mmol/L Sodium 135 (135-145) mmol/L Potassium 3.6 (3.5-4.5) mmol/L Chloride 99 L (101-111) mmol/L Carbon Dioxide 29 (21-32) mmol/L Anion Gap 7.0 (6-13) BUN 5 L (6-20) mg/dL Creatinine 0.4 L (0.6-1.3) mg/dL Estimated GFR (MDRD) 234 (>89) Glucose 84 (74-104) mg/dL Lactic Acid (0.5-2.2) mmol/L Calcium 7.7 L (8.5-10.3) mg/dL Phosphorus 3.0 (2.5-5.0) mg/dL Magnesium 1.9 (1.7-2.3) mg/dL Total Bilirubin 1.2 H (0.2-1.0) mg/dL AST 33 (10-42) IU/L ALT 15 (10-60) IU/L Alkaline Phosphatase 100 (42-121) IU/L Total Protein 6.0 L (6.4-8.9) g/dL Albumin 2.9 L (3.2-5.5) g/dL Globulin 3.1 (2.1-4.2) g/dL Albumin/Globulin Ratio 0.9 L (1.0-2.2) Lipase (11-82) U/L Vitamin B12 (180-914) pg/mL Folate (5.90 - >24.8) ng/mL Procalcitonin Immunoas (<0.5) ng/mL TSH (0.34-5.60) uIU/mL Urine Color DARK YELLOW Urine Clarity CLEAR (CLEAR) Urine pH 7.0 (5.0-7.5) PH Ur Specific [place] 1.015 (1.002-1.030) Urine Protein NEGATIVE (NEGATIVE) mg/dL Urine Glucose (UA) 100 H (NEGATIVE) mg/dL Urine Ketones TRACE (NEGATIVE) mg/dL Urine Occult Blood NEGATIVE (NEGATIVE) Urine Nitrite NEGATIVE (NEGATIVE) Urine Bilirubin SMALL H (NEGATIVE) Urine Urobilinogen >=8.0 H (NORMAL) E.U./dL Ur Leukocyte Esterase NEGATIVE (NEGATIVE) Ur Microscopic Review NOT INDICATED Urine Culture Comments NOT INDICATED Nasal Screen MRSA (PCR) NEGATIVE (NEGATIVE) Urine Opiates Screen NEGATIVE (NEGATIVE) Ur Buprenorphine Scrn NEGATIVE (NEGATIVE) Ur Oxycodone Screen NEGATIVE (NEGATIVE) Urine Methadone Screen NEGATIVE (NEGATIVE) Ur Barbiturates Screen NEGATIVE (NEGATIVE) Ur Tricyclics Screen NEGATIVE (NEGATIVE) Ur Phencyclidine Scrn NEGATIVE (NEGATIVE) Ur Amphetamine Screen NEGATIVE (NEGATIVE) U Methamphetamines Scrn NEGATIVE (NEGATIVE) U Benzodiazepines Scrn NEGATIVE (NEGATIVE) Urine Cocaine Screen NEGATIVE (NEGATIVE) U Cannabinoids Screen POSITIVE H (NEGATIVE) Ur Drug Screen Comment CUTOFF CONC BELOW: Ethyl Alcohol mg/dL 10/20/24 10/20/24 10/20/24 Range/Units 18:11 15:14 13:37 WBC 21.8 H 24.2 H (4.8-10.8) x10^3/uL RBC 3.60 L 3.71 L (4.70-6.10) 10^6/uL Hgb 12.6 L 12.8 L (14.0-18.0) g/dL Hct 35.7 L 36.7 L (42.0-52.0) % MCV 99.2 H 98.9 H (80.0-94.0) fL MCH 35.0 H 34.5 H (27.0-31.0) pg MCHC 35.3 34.9 (32.0-36.0) g/dL RDW 13.4 13.5 (12.0-15.0) % Plt Count 193 200 (130-450) 10^3/uL MPV 9.7 9.4 (7.4-11.4) fL Neut # (Auto) 20.1 H (1.5-6.6) 10^3/uL Lymph # (Auto) 1.6 (1.5-3.5) 10^3/uL [place] # (Auto) 1.9 H (0.0-1.0) 10^3/uL Eos # (Auto) 0.4 (0.0-0.7) 10^3/uL Baso # (Auto) 0.1 (0.0-0.1) 10^3/uL Absolute Nucleated RBC 0.08 x10^3/uL Nucleated RBC % 0.3 /100WBC Manual Slide Review Indicated Platelet Estimate NORMAL (130-450,000) (NORMAL) Platelet Morphology NORMAL APPEARANCE (NORMAL) RBC Morph Micro Appear 2+ HYPOCHROMASIA (NORMAL) VBG pH 7.485 H (7.31-7.41) VBG pCO2 43.9 (41-51) mmHg VBG pO2 26.1 (25-47) mmHg VBG HCO3 32.3 H (23-28) mmol/L VBG Total CO2 33.7 H (24-29) mmol/L VBG O2 Saturation 44.9 L (60-80) % VBG Base Excess 8.0 H (-2 - +2) mmol/L Ionized Calcium (1.15-1.33) mmol/L Sodium 132 L 132 L (135-145) mmol/L Potassium 2.9 L 2.7 L (3.5-4.5) mmol/L Chloride 91 L 88 L (101-111) mmol/L Carbon Dioxide 32 33 H (21-32) mmol/L Anion Gap 9.0 11.0 (6-13) BUN 5 L 6 (6-20) mg/dL Creatinine 0.4 L 0.5 L (0.6-1.3) mg/dL Estimated GFR (MDRD) 234 181 (>89) Glucose 128 H 142 H (74-104) mg/dL Lactic Acid 2.2 (0.5-2.2) mmol/L Calcium 8.1 L 8.7 (8.5-10.3) mg/dL Phosphorus (2.5-5.0) mg/dL Magnesium 1.5 L (1.7-2.3) mg/dL Total Bilirubin 1.9 H (0.2-1.0) mg/dL AST 43 H (10-42) IU/L ALT 20 (10-60) IU/L Alkaline Phosphatase 129 H (42-121) IU/L Total Protein 7.3 (6.4-8.9) g/dL Albumin 3.5 (3.2-5.5) g/dL Globulin 3.8 (2.1-4.2) g/dL Albumin/Globulin Ratio 0.9 L (1.0-2.2) Lipase 22 (11-82) U/L Vitamin B12 432 (180-914) pg/mL Folate 3.5 L (5.90 - >24.8) ng/mL Procalcitonin Immunoas 0.36 (<0.5) ng/mL TSH 1.29 (0.34-5.60) uIU/mL Urine Color Urine Clarity (CLEAR) Urine pH (5.0-7.5) PH Ur Specific [place] (1.002-1.030) Urine Protein (NEGATIVE) mg/dL Urine Glucose (UA) (NEGATIVE) mg/dL Urine Ketones (NEGATIVE) mg/dL Urine Occult Blood (NEGATIVE) Urine Nitrite (NEGATIVE) Urine Bilirubin (NEGATIVE) Urine Urobilinogen (NORMAL) E.U./dL Ur Leukocyte Esterase (NEGATIVE) Ur Microscopic Review Urine Culture Comments Nasal Screen MRSA (PCR) (NEGATIVE) Urine Opiates Screen (NEGATIVE) Ur Buprenorphine Scrn (NEGATIVE) Ur Oxycodone Screen (NEGATIVE) Urine Methadone Screen (NEGATIVE) Ur Barbiturates Screen (NEGATIVE) Ur Tricyclics Screen (NEGATIVE) Ur Phencyclidine Scrn (NEGATIVE) Ur Amphetamine Screen (NEGATIVE) U Methamphetamines Scrn (NEGATIVE) U Benzodiazepines Scrn (NEGATIVE) Urine Cocaine Screen (NEGATIVE) U Cannabinoids Screen (NEGATIVE) Ur Drug Screen Comment Ethyl Alcohol < 10.0 mg/dL Diagnostic Imaging Diagnostic Imaging Results: positive Final report reviewed Assessment/Plan Problem List (1) Delirium tremens: Impression: At this time patient does not have any active DTs. Last drink was about 24 hours ago. Continue conservative supportive measures. CIWA protocol with Ativan as needed (2) Alcohol use disorder: Impression: Patient is a known heavy alcohol user. Continue folic acid and vitamin B12. Patient may need counseling upon discharge. (3) Leukocytosis: Impression: At this time etiology is unclear. Reactive versus aspiration pneumonia. Start Empiric Unasyn for aspiration pneumonia. (4) Electrolyte imbalance: Impression: Replace electrolytes
[2024-10-21 09:29] LABS: CALCIUM, IONIZED 1.12 mmol/L (1.15-1.33); VBG PH 7.463 (7.31-7.41)
[2024-10-21] MEDS: AMPICILLIN/SULBACTAM 3 GM in SODIUM CHLORIDE 0.9% MINIBAG 100 ML IV SCH (09:42)
[2024-10-21] MEDS: PRENATAL VITAMIN TABLET PO SCH (13:11)
[2024-10-21] MEDS: THIAMINE INJ 500 MG in SODIUM CHLORIDE 0.9% 50 ML IV SCH (13:11)
--- NOTE | 2024-10-21 13:40 | PHARMACY PROGRESS NOTE ---
Best Possible Medication History Admit Date and Time: 10/20/242120 Home Medications Medication Instructions Recorded Confirmed Type No Known Home Medications 06/21/21 10/20/24 History Processed by: Pharmacy Medications reviewed in ED?: Yes Medication History completed: Yes Patient Interview: Pt interview ONLY source [facility] Statement: As the person ultimately responsible for medication therapy, providers are able to order a medication from an existing home medication list in [facility] via the "Reconcile Routine" prior to Confirmation of that medication by academic support center director. Such practice is discouraged except when the physician, in their clinical judgment, deems that a medical need exists for a medication without regard to previous use.
[2024-10-22 05:04] LABS: BASOPHILS # (AUTO) 0.1 10^3/uL (0.0-0.1); BASOPHILS % (AUTO) 0.7 %; EOSINOPHILS # (AUTO) 0.7 10^3/uL (0.0-0.7); EOSINOPHILS % (AUTO) 3.6 %; HCT - HEMATOCRIT 31.7 % (42.0-52.0); HGB - HEMOGLOBIN 10.9 g/dL (14.0-18.0); LYMPHOCYTES % (AUTO) 10.2 %; MEAN CORPUSCULAR HEMOGLOBIN 34.9 pg (27.0-31.0); MEAN CORPUSCULAR HGB CONC 34.4 g/dL (32.0-36.0); MEAN CORPUSCULAR VOLUME 101.6 fL (80.0-94.0); MEAN PLATELET VOLUME 10.4 fL (7.4-11.4); MONOCYTES # (AUTO) 1.5 10^3/uL (0.0-1.0); MONOCYTES % (AUTO) 7.3 %; NEUTROPHILS # (AUTO) 15.1 10^3/uL (1.5-6.6); NEUTROPHILS % (AUTO) 76.3 %; NRBC ABSOLUTE COUNT (AUTO) 0.03 x10^3/uL; NUCLEATED RED BLOOD CELLS AUTO 0.2 /100WBC; PLT - PLATELET COUNT 181 10^3/uL (130-450); RED BLOOD COUNT 3.12 10^6/uL (4.70-6.10); WHITE BLOOD COUNT 19.8 x10^3/uL (4.8-10.8)
[2024-10-22 05:09] LABS: CALCIUM, IONIZED 1.13 mmol/L (1.15-1.33); VBG PH 7.49 (7.31-7.41)
[2024-10-22 05:18] LABS: CALCIUM 8.1 mg/dL (8.5-10.3); CREATININE 0.4 mg/dL (0.6-1.3); MAGNESIUM 1.5 mg/dL (1.7-2.3); POTASSIUM 3.9 mmol/L (3.5-4.5)
[2024-10-22] MEDS: MAGNESIUM OXIDE 400 MG TABLET PO ONE (06:52)
[2024-10-22] MEDS: NEUTRA-PHOS 250 MG TABLET PO SCH (06:52)
--- NOTE | 2024-10-22 09:28 | PROVIDER PROGRESS NOTE ---
Subjective Prog Note Date Prog Note Date: 10/22/24 Prog Note Time: 09:22 Subjective Subjective: 44 yr male comes with complaints of not feeling well for last 9 days, no meds at home lives with girlfriend has been drinking in a daily basis, last drink prior to admission was initially thought to be dc home but later found to have luekocytosis and encpahopahty and is going to be admitted for observationfor impending DT as well as Leukocytosis and encphalopathy Paitent looks comfortable and resting when seen televideo 10/21/2024: Patient is lethargic, he has no complaints. Patient Required 3 mg of Ativan over the last 16 hours. 10/22/2024: Patient is awake, oriented x 4. He has no complaints. Patient required 2 mg of Ativan in the last 16 hours. Patient denies DTs or acute withdrawal symptoms. Current Medications Current Medications Current Medications: Current Medications Generic Name Dose Route Start Last Admin Trade Name Freq PRN Reason Stop Dose Admin Acetaminophen 650 mg 10/20/24 21:21 Acetaminophen 325 Mg Tablet PO Q4HR PRN Pain 1 to 4, or Fever Hydrocodone Bitart/Acetaminophen 1 tab 10/20/24 21:21 Hydrocod/Acetam 5/325 Mg Tablet PO Q4HR PRN Pain 5 to 7 Potassium Chloride/Sodium Chloride 1,000 mls @ 100 mls/hr 10/20/24 22:00 10/22/24 08:48 Normal Saline 0.9% W/20 Meq Kcl IV 100 mls/hr .Q10H SHARRON Administration Ampicillin Sodium/Sulbactam 100 mls @ 200 mls/hr 10/21/24 10:30 10/22/24 07:00 Sodium 3 gm/ Sodium Chloride IV Infused Q6HR SHARRON Infusion Thiamine HCl 500 mg/ Sodium 55 mls @ 100 mls/hr 10/21/24 14:00 10/22/24 07:39 Chloride IV 10/22/24 22:32 Infused TID SHARRON Infusion Lorazepam 1 mg 10/21/24 00:00 10/22/24 06:11 Lorazepam 2 Mg/Ml Vial IVP 1 mg Q6HR SHARRON Administration Ondansetron HCl 4 mg 10/20/24 21:21 Ondansetron 4 Mg/2 Ml Vial IVP Q6HR PRN Nausea / Vomiting Oxycodone HCl 10 mg 10/20/24 21:21 Oxycodone 5 Mg Tablet PO Q4HR PRN Pain 8 to 10 Pantoprazole Sodium 40 mg 10/21/24 07:00 10/22/24 06:56 Pantoprazole 40 Mg Tablet PO 40 mg QDAC SHARRON Administration Multivit/Folic Acid/Iron 1 tab 10/21/24 12:00 10/21/24 13:11 Vitamin Tablet PO 1 tab QDLUNCH SHARRON Administration Sodium Chloride 10 ml 10/21/24 01:00 10/22/24 08:48 Sodium Chloride Flush 0.9% 10 Ml Syringe IVP 10 ml 0100,[id number],1700 SHARRON Administration Sodium Chloride 10 ml 10/20/24 21:21 10/21/24 06:11 Sodium Chloride Flush 0.9% 10 Ml Syringe IVP 10 ml PRN PRN Administration NEEDED PER PROVIDER ORDERS Thiamine HCl 100 mg 10/23/24 09:00 Thiamine 100 Mg Tablet PO DAILY SHARRON Objective Vital Signs/Intake & Output Reviewed Vital Signs: Yes Vital Signs: Vital Signs x48h Temp Pulse Resp BP Pulse Ox 10/22/24 09:00 99 22 121/92 H 98 10/22/24 08:00 36.7 C 96 18 111/78 99 10/22/24 06:49 101 H 16 113/79 96 10/22/24 06:00 85 18 121/87 96 10/22/24 06:00 36.7 C 10/22/24 05:00 87 18 112/83 97 10/22/24 04:00 95 18 118/88 97 10/22/24 03:00 97 16 113/85 96 10/22/24 02:00 37.0 C 97 22 112/83 97 Intake & Output: Intake & Output 10/19/24 10/20/24 10/21/24 10/22/24 23:59 23:59 23:59 23:59 Intake Total 1450 / 1450 3780 / 3780 1455 / 1455 Output Total 500 / 500 0 / 0 Balance 1450 / 1450 3280 / 3280 1455 / 1455 Weight (kg) 60 kg 62 kg 62.5 kg Objective General Appearance: positive No acute distress and Alert Eyes Bilateral: positive Normal inspection and PERRL ENT: positive ENT inspection nml and Pharynx nml Neck: positive Nml inspection and Trachea midline Respiratory: positive Chest non-tender and No respiratory distress Cardiovascular: positive Regular rate & rhythm and No murmur Abdomen: positive Non-tender, No organomegaly and No distention Skin: positive Color nml and No rash Extremities: positive Non-tender and Full ROM Neurologic/Psychiatric: positive Oriented x3 and CN's nml (2-12) Lab Results 10/22/24 04:20 10/22/24 12:10 Other Labs: Lab Results x24hrs 10/22/24 10/21/24 10/21/24 Range/Units 04:20 10:45 09:14 WBC 19.8 H (4.8-10.8) x10^3/uL RBC 3.12 L (4.70-6.10) 10^6/uL Hgb 10.9 L (14.0-18.0) g/dL Hct 31.7 L (42.0-52.0) % MCV 101.6 H (80.0-94.0) fL MCH 34.9 H (27.0-31.0) pg MCHC 34.4 (32.0-36.0) g/dL RDW 14.0 (12.0-15.0) % Plt Count 181 (130-450) 10^3/uL MPV 10.4 (7.4-11.4) fL Neut # (Auto) 15.1 H (1.5-6.6) 10^3/uL Lymph # (Auto) 2.0 (1.5-3.5) 10^3/uL [place] # (Auto) 1.5 H (0.0-1.0) 10^3/uL Eos # (Auto) 0.7 (0.0-0.7) 10^3/uL Baso # (Auto) 0.1 (0.0-0.1) 10^3/uL Absolute Nucleated RBC 0.03 x10^3/uL Nucleated RBC % 0.2 /100WBC VBG pH 7.490 H 7.463 H (7.31-7.41) Ionized Calcium 1.13 L 1.12 L (1.15-1.33) mmol/L Sodium 134 L (135-145) mmol/L Potassium 3.9 4.7 H (3.5-4.5) mmol/L Chloride 103 (101-111) mmol/L Carbon Dioxide 27 (21-32) mmol/L Anion Gap 4.0 L (6-13) BUN 3 L (6-20) mg/dL Creatinine 0.4 L (0.6-1.3) mg/dL Estimated GFR (MDRD) 234 (>89) Glucose 88 (74-104) mg/dL Calcium 8.1 L (8.5-10.3) mg/dL Phosphorus 2.0 L (2.5-5.0) mg/dL Magnesium 1.5 L (1.7-2.3) mg/dL Ammonia 21.8 (18-72) umol/L Lipase 35 (11-82) U/L Diagnostic Imaging Diagnostic Imaging Results: positive Final report reviewed Assessment/Plan Problem List (1) Delirium tremens: Impression: At this time patient does not have any active DTs. Continue conservative supportive measures. CIWA protocol with Ativan as needed Supplemental thiamine, folic acid. (2) Alcohol use disorder: Impression: Patient is a known heavy alcohol user. Continue folic acid and vitamin B12. Per patient's brother patient is Is not interested in alcohol cessation counseling (3) Leukocytosis: Impression: At this time etiology is unclear. Reactive versus aspiration pneumonia. White blood cell count jumped from 16.8-19.8 overnight. Patient continues to be afebrile, no clear source of infection. Continue Unasyn for possible aspiration pneumonia, follow lactate (4) Electrolyte imbalance: Impression: Replace electrolytes
[2024-10-22] MEDS ORDERED: FOLIC ACID 1 MG TABLET PO SCH (10:00)
[2024-10-22 12:27] LABS: CALCIUM 7.8 mg/dL (8.5-10.3); MAGNESIUM 1.4 mg/dL (1.7-2.3); PHOSPHORUS 2.6 mg/dL (2.5-5.0); POTASSIUM 3.9 mmol/L (3.5-4.5)
[2024-10-22] MEDS: MAGNESIUM SULFATE 2 GRAM 2 GM/50 ML BAG IV SCH (12:49)
[2024-10-22] MEDS: POTASSIUM CHLORIDE 20 MEQ TABLET PO ONE (12:50)
[2024-10-22 17:14] LABS: CALCIUM, IONIZED 1.1 mmol/L (1.15-1.33); VBG PH 7.386 (7.31-7.41)
[2024-10-22 17:23] LABS: MAGNESIUM 2.4 mg/dL (1.7-2.3); POTASSIUM 4.1 mmol/L (3.5-4.5)
[2024-10-22] MEDS: CALCIUM CARBONATE CHEW 500 MG TABLET PO SCH (17:49)
[2024-10-22] MEDS: HYDROcod/ACETAM 5/325 MG TABLET PO PRN (23:53)
[2024-10-23 04:27] LABS: BASOPHILS % (AUTO) 0.5 %; EOSINOPHILS % (AUTO) 3.7 %; HCT - HEMATOCRIT 31.7 % (42.0-52.0); HGB - HEMOGLOBIN 10.6 g/dL (14.0-18.0); LYMPHOCYTES % (AUTO) 10.7 %; MEAN CORPUSCULAR HEMOGLOBIN 34.6 pg (27.0-31.0); MEAN CORPUSCULAR HGB CONC 33.4 g/dL (32.0-36.0); MEAN CORPUSCULAR VOLUME 103.6 fL (80.0-94.0); MEAN PLATELET VOLUME 10.1 fL (7.4-11.4); MONOCYTES % (AUTO) 8.5 %; PLT - PLATELET COUNT 177 10^3/uL (130-450); RED BLOOD COUNT 3.06 10^6/uL (4.70-6.10); WHITE BLOOD COUNT 19.9 x10^3/uL (4.8-10.8)
[2024-10-23 04:28] LABS: CALCIUM, IONIZED 1.12 mmol/L (1.15-1.33); VBG PH 7.515 (7.31-7.41)
[2024-10-23 04:32] LABS: ABNORMAL LYMPHS % (MANUAL) 0 %
[2024-10-23 04:43] LABS: MAGNESIUM 1.8 mg/dL (1.7-2.3)
[2024-10-23 04:49] LABS: CALCIUM 8.3 mg/dL (8.5-10.3); CREATININE 0.4 mg/dL (0.6-1.3); POTASSIUM 4.2 mmol/L (3.5-4.5)
[2024-10-23 05:18] LABS: BAND NEUTROPHILS % (MANUAL) 3 %; EOSINOPHILS # (MANUAL) 0.6 10^3/uL (0-0.7); LYMPHOCYTES % (MANUAL) 10 %; NEUTROPHILS # (MANUAL) 16.3 10^3/uL (1.5-6.6)
[2024-10-23 05:19] LABS: DIFFERENTIAL COMMENT MANUAL DIFFERENTIAL; PLATELET ESTIMATE, MANUAL NORMAL (130-450,000) (NORMAL); PLATELET MORPHOLOGY NORMAL APPEARANCE (NORMAL)
[2024-10-23] MEDS: MAGNESIUM OXIDE 400 MG TABLET PO ONE (06:18)
[2024-10-23] MEDS: CALCIUM CARBONATE CHEW 500 MG TABLET PO SCH (06:18)
[2024-10-23] MEDS: THIAMINE 100 MG TABLET PO SCH (08:51)
--- NOTE | 2024-10-23 09:01 | PROVIDER PROGRESS NOTE ---
Subjective Prog Note Date Prog Note Date: 10/23/24 Prog Note Time: 08:59 Subjective Subjective: 44 yr male comes with complaints of not feeling well for last 9 days, no meds at home lives with girlfriend has been drinking in a daily basis, last drink prior to admission was initially thought to be dc home but later found to have luekocytosis and encpahopahty and is going to be admitted for observationfor impending DT as well as Leukocytosis and encphalopathy Paitent looks comfortable and resting when seen televideo 10/21/2024: Patient is lethargic, he has no complaints. Patient Required 3 mg of Ativan over the last 16 hours. 10/22/2024: Patient is awake, oriented x 4. He has no complaints. Patient required 2 mg of Ativan in the last 16 hours. Patient denies DTs or acute withdrawal symptoms. 10/23/2024: Patient is awake, oriented. No complaints. Patient required [place] x 2 during the nighttime for leg pain. Upon interviewing patient does not remember having leg pain. Current Medications Current Medications Current Medications: Current Medications Generic Name Dose Route Start Last Admin Trade Name Freq PRN Reason Stop Dose Admin Acetaminophen 650 mg 10/20/24 21:21 Acetaminophen 325 Mg Tablet PO Q4HR PRN Pain 1 to 4, or Fever Hydrocodone Bitart/Acetaminophen 1 tab 10/20/24 21:21 10/23/24 06:18 Hydrocod/Acetam 5/325 Mg Tablet PO 1 tab Q4HR PRN Administration Pain 5 to 7 Calcium Carbonate/Glycine 1,250 mg 10/23/24 06:00 10/23/24 06:18 Calcium Carbonate Chew 500 Mg Tablet PO 10/23/24 10:01 1,250 mg Q4H SHARRON Administration Protocol Potassium Chloride/Sodium Chloride 1,000 mls @ 100 mls/hr 10/20/24 22:00 10/23/24 08:10 Normal Saline 0.9% W/20 Meq Kcl IV 100 mls/hr .Q10H SHARRON Administration Ampicillin Sodium/Sulbactam 100 mls @ 200 mls/hr 10/21/24 10:30 10/23/24 06:50 Sodium 3 gm/ Sodium Chloride IV Infused Q6HR SHARRON Infusion Ondansetron HCl 4 mg 10/20/24 21:21 Ondansetron 4 Mg/2 Ml Vial IVP Q6HR PRN Nausea / Vomiting Oxycodone HCl 10 mg 10/20/24 21:21 Oxycodone 5 Mg Tablet PO Q4HR PRN Pain 8 to 10 Pantoprazole Sodium 40 mg 10/21/24 07:00 10/23/24 06:19 Pantoprazole 40 Mg Tablet PO 40 mg QDAC SHARRON Administration Multivit/Folic Acid/Iron 1 tab 10/21/24 12:00 10/23/24 08:50 Vitamin Tablet PO 1 tab QDLUNCH SHARRON Administration Sodium Chloride 10 ml 10/21/24 01:00 10/23/24 08:55 Sodium Chloride Flush 0.9% 10 Ml Syringe IVP 10 ml 0100,0900,1700 SHARRON Administration Sodium Chloride 10 ml 10/20/24 21:21 10/21/24 06:11 Sodium Chloride Flush 0.9% 10 Ml Syringe IVP 10 ml PRN PRN Administration NEEDED PER PROVIDER ORDERS Thiamine HCl 100 mg 10/23/24 09:00 10/23/24 08:51 Thiamine 100 Mg Tablet PO 100 mg DAILY SHARRON Administration Objective Vital Signs/Intake & Output Reviewed Vital Signs: Yes Vital Signs: Vital Signs x48h Temp Pulse Resp BP Pulse Ox 10/23/24 08:00 36.7 C 105 H 20 111/83 100 10/23/24 07:00 86 12 114/77 98 10/23/24 06:00 36.6 C 87 14 115/76 98 10/23/24 05:00 84 16 129/84 97 10/23/24 04:00 90 14 118/75 97 10/23/24 03:00 89 19 110/80 98 10/23/24 02:00 92 17 125/78 97 10/23/24 01:00 89 17 113/76 99 Intake & Output: Intake & Output 10/20/24 10/21/24 10/22/24 10/23/24 23:59 23:59 23:59 23:59 Intake Total 1450 / 1450 3780 / 3780 4195 / 4195 1540 / 1540 Output Total 500 / 500 0 / 0 250 / 250 Balance 1450 / 1450 3280 / 3280 4195 / 4195 1290 / 1290 Weight (kg) 60 kg 62 kg 62.5 kg 62 kg Objective General Appearance: positive No acute distress and Alert Eyes Bilateral: positive Normal inspection and PERRL ENT: positive ENT inspection nml and Pharynx nml Neck: positive Nml inspection and Trachea midline Respiratory: positive Chest non-tender and No respiratory distress Cardiovascular: positive Regular rate & rhythm and No murmur Abdomen: positive Non-tender, No organomegaly and No distention Skin: positive Color nml and No rash Extremities: positive Non-tender and Full ROM Neurologic/Psychiatric: positive Oriented x3 and CN's nml (2-12) Lab Results 10/23/24 04:17 10/23/24 04:17 Other Labs: Lab Results x24hrs 10/23/24 10/23/24 10/22/24 Range/Units 04:17 04:17 17:02 WBC 19.9 H (4.8-10.8) x10^3/uL RBC 3.06 L (4.70-6.10) 10^6/uL Hgb 10.6 L (14.0-18.0) g/dL Hct 31.7 L (42.0-52.0) % MCV 103.6 H (80.0-94.0) fL MCH 34.6 H (27.0-31.0) pg MCHC 33.4 (32.0-36.0) g/dL RDW 14.0 (12.0-15.0) % Plt Count 177 (130-450) 10^3/uL MPV 10.1 (7.4-11.4) fL Neut # (Auto) Not Reportable Lymph # (Auto) Not Reportable [place] # (Auto) Not Reportable Eos # (Auto) Not Reportable Baso # (Auto) Not Reportable Absolute Nucleated RBC Not Reportable Total Counted 100 Band Neuts % (Manual) 3 (0 - 10) % Abnorm Lymph % (Manual) 0 % Nucleated RBC % Not Reportable Neutrophils # (Manual) 16.3 H (1.5-6.6) 10^3/uL Lymphocytes # (Manual) 2.0 (1.5-3.5) 10^3/uL Monocytes # (Manual) 1.0 (0.0-1.0) 10^3/uL Eosinophils # (Manual) 0.6 (0-0.7) 10^3/uL Basophils # (Manual) 0.0 (0-0.1) 10^3/uL Differential Comment MANUAL DIFFERENTIAL Platelet Estimate NORMAL (130-450,000) (NORMAL) Platelet Morphology NORMAL APPEARANCE (NORMAL) RBC Morph Micro Appear 1+ HYPOCHROMASIA 1+ MACROCYTOSIS (NORMAL) VBG pH 7.515 H 7.386 (7.31-7.41) Ionized Calcium 1.12 L 1.10 L (1.15-1.33) mmol/L Sodium 135 (135-145) mmol/L Potassium 4.2 4.1 (3.5-4.5) mmol/L Chloride 106 (101-111) mmol/L Carbon Dioxide 24 (21-32) mmol/L Anion Gap 5.0 L (6-13) BUN 2 L (6-20) mg/dL Creatinine 0.4 L (0.6-1.3) mg/dL Estimated GFR (MDRD) 234 (>89) Glucose 100 (74-104) mg/dL Lactic Acid (0.5-2.2) mmol/L Calcium 8.3 L (8.5-10.3) mg/dL Phosphorus 3.0 (2.5-5.0) mg/dL Magnesium 1.8 2.4 H (1.7-2.3) mg/dL Lactate Dehydrogenase (140-271) IU/L 10/22/24 10/22/24 Range/Units 12:10 09:31 WBC (4.8-10.8) x10^3/uL RBC (4.70-6.10) 10^6/uL Hgb (14.0-18.0) g/dL Hct (42.0-52.0) % MCV (80.0-94.0) fL MCH (27.0-31.0) pg MCHC (32.0-36.0) g/dL RDW (12.0-15.0) % Plt Count (130-450) 10^3/uL MPV (7.4-11.4) fL Neut # (Auto) Lymph # (Auto) [place] # (Auto) Eos # (Auto) Baso # (Auto) Absolute Nucleated RBC Total Counted Band Neuts % (Manual) (0 - 10) % Abnorm Lymph % (Manual) % Nucleated RBC % Neutrophils # (Manual) (1.5-6.6) 10^3/uL Lymphocytes # (Manual) (1.5-3.5) 10^3/uL Monocytes # (Manual) (0.0-1.0) 10^3/uL Eosinophils # (Manual) (0-0.7) 10^3/uL Basophils # (Manual) (0-0.1) 10^3/uL Differential Comment Platelet Estimate (NORMAL) Platelet Morphology (NORMAL) RBC Morph Micro Appear (NORMAL) VBG pH (7.31-7.41) Ionized Calcium (1.15-1.33) mmol/L Sodium (135-145) mmol/L Potassium 3.9 (3.5-4.5) mmol/L Chloride (101-111) mmol/L Carbon Dioxide (21-32) mmol/L Anion Gap (6-13) BUN (6-20) mg/dL Creatinine (0.6-1.3) mg/dL Estimated GFR (MDRD) (>89) Glucose (74-104) mg/dL Lactic Acid 1.0 (0.5-2.2) mmol/L Calcium 7.8 L (8.5-10.3) mg/dL Phosphorus 2.6 (2.5-5.0) mg/dL Magnesium 1.4 L (1.7-2.3) mg/dL Lactate Dehydrogenase 114 L (140-271) IU/L Diagnostic Imaging Diagnostic Imaging Results: positive Final report reviewed Assessment/Plan Problem List (1) Delirium tremens: Impression: At this time patient does not have any active DTs. Continue conservative supportive measures. CIWA protocol with Ativan as needed Supplemental thiamine, folic acid. (2) Alcohol use disorder: Impression: Patient is a known heavy alcohol user. Continue folic acid and vitamin B12. Per patient's brother patient is Is not interested in alcohol cessation counseling (3) Leukocytosis: Impression: Patient consistently elevated leukocytosis of 20,000. Etiology unknown. Patient is on Unasyn for aspiration pneumonia. Patient is afebrile, Lactate is within normal limits. No complaints, patient does not appear in distress. Follow CT abdomen. (4) Electrolyte imbalance: Impression: Replace electrolytes (5) Colitis: Impression: CT abdomen indicates inflammatory/infectious colitis DC Unasyn, start Flagyl, Cipro Trend leukocytosis.
[2024-10-23] MEDS: LORazepam 2 MG/ML VIAL IVP PRN (10:55)
[2024-10-23] MEDS ORDERED: iohexoL-300 100 ML VIAL ONE (11:15)
[2024-10-23] MEDS: polyethylene glycoL 3350 17 GM PACKET PO SCH (13:20)
[2024-10-23] MEDS: NICOTINE 21 MG PATCH TOP SCH (13:58)
[2024-10-23 14:32] LABS: CALCIUM 8.4 mg/dL (8.5-10.3); MAGNESIUM 1.7 mg/dL (1.7-2.3)
[2024-10-23] MEDS: iohexoL-300 100 ML VIAL IVP ONE (16:01)
--- NOTE | 2024-10-23 16:36 | CT Report ---
PROCEDURE: CT Abdomen/Pelvis W INDICATIONS: abd pain, etoh CONTRAST: Omni 300 100ml TECHNIQUE: After the administration of intravenous contrast, a CT scan of the abdomen and pelvis was performed. Images were recorded and evaluated at appropriate window settings. Reformats: coronal and sagittal. F or radiation dose reduction, the following was used: automated exposure control, adjustment of mA and /or kV according to patient size. COMPARISON: None. FINDINGS: Image quality: Diagnostic. Lower chest: Bibasilar dependent atelectasis/scarring. Heart size is normal, no pericardial effusion. Liver: No solid mass. There is mild hepatic steatosis. Gallbladder: No radiopaque stones or wall thickening. Biliary tree: No intrahepatic or extrahepatic dilation, accounting for age. Spleen: No splenomegaly. Pancreas: No pancreatic ductal dilation. Adrenals: No adrenal nodule. Kidneys and ureters: No hydronephrosis. No renal cystic lesion which requires follow up. No solid mas s. Stomach, bowel and peritoneum: There is no bowel obstruction. Markedly distended stomach lumen is see n without significant gastric wall thickening. No abnormal fluid distention of small bowel loops. Mod erate fecal stasis in the colon is seen. There is wall thickening and mild adjacent mesenteric fat st randing involving distal descending colon and sigmoid colon with narrowing of the lumen. No discrete drainable abscess collection is noted. No peritoneal free fluid of free air. Lymph nodes: No central or retroperitoneal adenopathy. Vessels: No infrarenal aortic aneurysm. Patent portal vein. PELVIS Reproductive organs: Unremarkable. Bladder: No abnormal wall thickening, accounting for underdistention. Pelvic lymph nodes: No pelvic adenopathy by size criteria. Bones: No aggressive osseous abnormality. Other: No significant ventral or inguinal hernia. IMPRESSION: 1. Finding is concerning for infectious or inflammatory colitis involving distal descending colon and sigmoid colon. No abscess collection. No free fluid of free air. No bowel obstruction. 2. Markedly distended stomach lumen which can represent gastroparesis suggest clinical correlation. 3. Mild hepatic steatosis, no discrete hepatic lesion. No gross abnormality is seen in contracted gal lbladder. Reviewed by: Joni Harrison MD on 10/23/2024 4:35 PM PST Approved by: Joni Harrison MD on 10/23/2024 4:35 PM PST Station ID: [id number]
[2024-10-23] MEDS: CIPROFLOXACIN 400 MG/200 ML 400 MG/200 ML BAG IV SCH (17:15)
[2024-10-23] MEDS: MAGNESIUM OXIDE 400 MG TABLET PO SCH (17:37)
[2024-10-23] MEDS: metroNIDAZOLE 500 MG/100 ML 500 MG/100 ML BAG IV SCH (18:29)
--- NOTE | 2024-10-23 21:06 | PROVIDER PROGRESS NOTE ---
Fruit Stuffer Note Fruit Stuffer Note Fruit Stuffer Note: RN paged " Pt is 44M DNR admitted ICU observation for ETOH withdrawal. Patient CIWA is 9 currently with the patient getting more restless, anxious, and some mild visual hallucinating. I'm unsure why but PRN ativan was discontinued on this patient's MAR sometime today. Last given dose was 11:00am. I can't find any note from the provider mentioning why it was discontinued. The patient's last known drink was 10/20 prior to his admission that same day. Can I get an order for a dose of ativan to help him with the restlessness/anxiety? Appreciate the help." unclear why however given 72hrs since last drink, order may have fallen off automatically. will cover with prn diazepam iv as needed. Feliciano Bell
[2024-10-23] MEDS: diazePAM INJ 5 MG/ML SYRINGE IVP PRN (21:41)
[2024-10-24 04:20] LABS: BASOPHILS # (AUTO) 0.1 10^3/uL (0.0-0.1); BASOPHILS % (AUTO) 0.4 %; EOSINOPHILS # (AUTO) 0.6 10^3/uL (0.0-0.7); EOSINOPHILS % (AUTO) 2.9 %; HCT - HEMATOCRIT 34.6 % (42.0-52.0); HGB - HEMOGLOBIN 11.4 g/dL (14.0-18.0); LYMPHOCYTES # (AUTO) 2.1 10^3/uL (1.5-3.5); LYMPHOCYTES % (AUTO) 9.9 %; MEAN CORPUSCULAR HEMOGLOBIN 34.1 pg (27.0-31.0); MEAN CORPUSCULAR HGB CONC 32.9 g/dL (32.0-36.0); MEAN CORPUSCULAR VOLUME 103.6 fL (80.0-94.0); MEAN PLATELET VOLUME 9.8 fL (7.4-11.4); MONOCYTES % (AUTO) 9.5 %; NEUTROPHILS # (AUTO) 15.8 10^3/uL (1.5-6.6); NEUTROPHILS % (AUTO) 74.7 %; PLT - PLATELET COUNT 188 10^3/uL (130-450); RED BLOOD COUNT 3.34 10^6/uL (4.70-6.10); RED CELL DISTRIBUTION WIDTH 14.4 % (12.0-15.0); WHITE BLOOD COUNT 21.2 x10^3/uL (4.8-10.8)
[2024-10-24 04:39] LABS: CALCIUM 8.6 mg/dL (8.5-10.3); CREATININE 0.6 mg/dL (0.6-1.3)
[2024-10-24 04:44] LABS: CALCIUM, IONIZED 1.19 mmol/L (1.15-1.33); VBG PH 7.429 (7.31-7.41)
[2024-10-24 04:56] LABS: MAGNESIUM 1.7 mg/dL (1.7-2.3); PHOSPHORUS 4.3 mg/dL (2.5-5.0)
[2024-10-24 05:45] LABS: DIFFERENTIAL COMMENT MANUAL=AUTO DIFF; PLATELET ESTIMATE, MANUAL NORMAL (130-450,000) (NORMAL); RBC MORPHOLOGY (MULTIPLE) NORMAL APPEARANCE (NORMAL); WBC MORPHOLOGY (MULTIPLE) NORMAL APPEARANCE (NORMAL)
[2024-10-24] MEDS: MAGNESIUM OXIDE 400 MG TABLET PO ONE (06:22)
--- NOTE | 2024-10-24 08:01 | PROVIDER PROGRESS NOTE ---
Subjective Prog Note Date Prog Note Date: 10/24/24 Prog Note Time: 07:53 Subjective Subjective: 44 yr male comes with complaints of not feeling well for last 9 days, no meds at home lives with girlfriend has been drinking in a daily basis, last drink prior to admission was initially thought to be dc home but later found to have luekocytosis and encpahopahty and is going to be admitted for observationfor impending DT as well as Leukocytosis and encphalopathy Samiratent looks comfortable and resting when seen televideo 10/21/2024: Patient is lethargic, he has no complaints. Patient Required 3 mg of Ativan over the last 16 hours. 10/22/2024: Patient is awake, oriented x 4. He has no complaints. Patient required 2 mg of Ativan in the last 16 hours. Patient denies DTs or acute withdrawal symptoms. 10/23/2024: Patient is awake, oriented. No complaints. Patient required [place] x 2 during the nighttime for leg pain. Upon interviewing patient does not remember having leg pain. 10/24/2024: Patient is awake, oriented. No complaints, denies abdominal pain, Nausea, emesis. Current Medications Current Medications Current Medications: Current Medications Generic Name Dose Route Start Last Admin Trade Name Freq PRN Reason Stop Dose Admin Acetaminophen 650 mg 10/20/24 21:21 Acetaminophen 325 Mg Tablet PO Q4HR PRN Pain 1 to 4, or Fever Diazepam 5 mg 10/23/24 21:04 10/23/24 21:41 Diazepam Inj 5 Mg/Ml Syringe IVP 5 mg Q6HR PRN Administration Anxiety Metronidazole 500 mg in 100 mls @ 100 mls/hr 10/23/24 18:00 10/24/24 03:35 Flagyl 500 Mg/100 Ml IV Infused Q8H SHARRON Infusion Ciprofloxacin 400 mg in 200 mls @ 200 mls/hr 10/23/24 18:00 10/24/24 06:21 Cipro 400 Mg/200 Ml IV 200 mls/hr Q12H SHARRON Administration Nicotine 1 patch 10/23/24 14:00 10/23/24 14:00 Nicotine 21 Mg Patch TOP 1 patch DAILY SHARRON Administration Ondansetron HCl 4 mg 10/20/24 21:21 Ondansetron 4 Mg/2 Ml Vial IVP Q6HR PRN Nausea / Vomiting Pantoprazole Sodium 40 mg 12/24/24 07:00 10/24/24 06:21 Pantoprazole 40 Mg Tablet PO 40 mg QDAC SHARRON Administration Polyethylene Glycol 17 gm 10/23/24 11:00 10/23/24 14:52 Polyethylene Glycol 3350 17 Gm Packet PO 17 gm DAILY SHARRON Administration Multivit/Folic Acid/Iron 1 tab 10/21/24 12:00 10/23/24 08:50 Vitamin Tablet PO 1 tab QDLUNCH SHARRON Administration Sodium Chloride 10 ml 10/21/24 01:00 10/24/24 01:18 Sodium Chloride Flush 0.9% 10 Ml Syringe IVP 10 ml 0100,0900,1700 SHARRON Administration Sodium Chloride 10 ml 10/20/24 21:21 10/21/24 06:11 Sodium Chloride Flush 0.9% 10 Ml Syringe IVP 10 ml PRN PRN Administration NEEDED PER PROVIDER ORDERS Thiamine HCl 100 mg 10/23/24 09:00 10/23/24 08:51 Thiamine 100 Mg Tablet PO 100 mg DAILY SHARRON Administration Objective Vital Signs/Intake & Output Reviewed Vital Signs: Yes Vital Signs: Vital Signs x48h Temp Pulse Resp BP Pulse Ox 10/24/24 07:00 110 H 19 123/95 H 98 10/24/24 06:00 104 H 12 111/84 98 10/24/24 05:00 105 H 14 114/86 97 10/24/24 04:00 105 H 14 118/93 H 94 10/24/24 03:00 36.6 C 106 H 12 108/88 98 10/24/24 02:00 102 H 15 110/80 97 10/24/24 01:00 100 12 128/86 97 10/24/24 00:00 104 H 14 119/89 96 Intake & Output: Intake & Output 10/21/24 10/22/24 10/23/24 10/24/24 23:59 23:59 23:59 23:59 Intake Total 3780 / 3780 4195 / 4195 3262 / 3262 100 / 100 Output Total 500 / 500 0 / 0 750 / 750 0 / 0 Balance 3280 / 3280 4195 / 4195 2512 / 2512 100 / 100 Weight (kg) 62 kg 62.5 kg 62 kg 60 kg Objective General Appearance: positive No acute distress and Alert Eyes Bilateral: positive Normal inspection and PERRL ENT: positive ENT inspection nml and Pharynx nml Neck: positive Nml inspection and Trachea midline Respiratory: positive Chest non-tender and No respiratory distress Cardiovascular: positive Regular rate & rhythm and No murmur Abdomen: positive Non-tender, No organomegaly and No distention Skin: positive Color nml and No rash Extremities: positive Non-tender and Full ROM Neurologic/Psychiatric: positive Oriented x3 and CN's nml (2-12) Lab Results 10/24/24 04:03 10/24/24 04:03 Other Labs: Lab Results x24hrs 10/24/24 10/23/24 Range/Units 04:03 14:00 WBC 21.2 H (4.8-10.8) x10^3/uL RBC 3.34 L (4.70-6.10) 10^6/uL Hgb 11.4 L (14.0-18.0) g/dL Hct 34.6 L (42.0-52.0) % MCV 103.6 H (80.0-94.0) fL MCH 34.1 H (27.0-31.0) pg MCHC 32.9 (32.0-36.0) g/dL RDW 14.4 (12.0-15.0) % Plt Count 188 (130-450) 10^3/uL MPV 9.8 (7.4-11.4) fL Neut # (Auto) 15.8 H (1.5-6.6) 10^3/uL Lymph # (Auto) 2.1 (1.5-3.5) 10^3/uL [place] # (Auto) 2.0 H (0.0-1.0) 10^3/uL Eos # (Auto) 0.6 (0.0-0.7) 10^3/uL Baso # (Auto) 0.1 (0.0-0.1) 10^3/uL Absolute Nucleated RBC 0.00 x10^3/uL Band Neuts % (Manual) Not Reportable Abnorm Lymph % (Manual) Not Reportable Nucleated RBC % 0.0 /100WBC Neutrophils # (Manual) Not Reportable Lymphocytes # (Manual) Not Reportable Monocytes # (Manual) Not Reportable Eosinophils # (Manual) Not Reportable Basophils # (Manual) Not Reportable Differential Comment MANUAL=AUTO DIFF WBC Morphology NORMAL APPEARANCE (NORMAL) Platelet Estimate NORMAL (130-450,000) (NORMAL) RBC Morph Micro Appear NORMAL APPEARANCE (NORMAL) VBG pH 7.429 H (7.31-7.41) Ionized Calcium 1.19 (1.15-1.33) mmol/L Sodium 135 (135-145) mmol/L Potassium 4.0 (3.5-4.5) mmol/L Chloride 102 (101-111) mmol/L Carbon Dioxide 26 (21-32) mmol/L Anion Gap 7.0 (6-13) BUN 3 L (6-20) mg/dL Creatinine 0.6 (0.6-1.3) mg/dL Estimated GFR (MDRD) 146 (>89) Glucose 97 (74-104) mg/dL Calcium 8.6 8.4 L (8.5-10.3) mg/dL Phosphorus 4.3 (2.5-5.0) mg/dL Magnesium 1.7 1.7 (1.7-2.3) mg/dL Diagnostic Imaging Diagnostic Imaging Results: positive Final report reviewed Assessment/Plan Problem List (1) Delirium tremens: Impression: At this time patient does not have any active DTs. Continue conservative supportive measures. CIWA protocol with Ativan as needed Supplemental thiamine, folic acid. (2) Alcohol use disorder: Impression: Patient is a known heavy alcohol user. Continue folic acid and vitamin B12. Per patient's brother patient is Is not interested in alcohol cessation counseling (3) Leukocytosis: Impression: Patient has persistent leukocytosis, Now up to 22,000. CT of the abdomen, done yesterday, indicated possible inflammatory/Infectious colitis of the descending and sigmoid colon. Patient denies Abdominal pain or diarrhea. Last bowel movement was several days ago. Lactated with normal limits. Patient appears nonseptic. Patient was started on Flagyl and Cipro. Unasyn was discontinued. Will consult surgery for possible colonoscopy. Addendum: Per surgery recommendation (please see note) high risk for perforation continue clear liquids, abx, conservative management (4) Electrolyte imbalance: Impression: Replace electrolytes (5) Colitis: Impression: CT abdomen indicates inflammatory/infectious colitis Continue Flagyl, Cipro. Consult surgery/GI Trend leukocytosis. (6) Acute encephalopathy: Impression: Patient has episodes of mental clarity and mental fogginess. He is oriented to himself, time but confused about location. Patient has episodes of hallucinations about his mom being in his room. Last drink was about 4 days ago. There is no current signs of active alcohol withdrawal. Last ativan dosage was 2 days ago. Pt received 1 dose valium o/n CT head on admission was negative. Patient has been a longtime active drinker. Differential includes Warnicke syndrome, mild Etoh w/d, metabolic causes. Will continue to monitor.
--- NOTE | 2024-10-24 14:21 | CONSULTATION NOTE ---
Chief Complaint Chief Complaint Chief Complaint: denies abdominal pain. History of Present Illness Admitted From Admitted From:: ed History Obtained From Records Reviewed: yes History obtained from: nurses and pt Exam Limitations: poor historian or unreliable hx per pt History of Present Illness HPI Comment/Other: consult for possible colitis on ct scan and elevated wbc Meds/Allgy Home Medications Ambulatory Orders Medication Instructions Recorded Confirmed No Known Home Medications 06/21/21 10/20/24 Allergies Allergies Allergy/AdvReac Type Severity Reaction Status Date / Time No Known Drug Allergies Allergy Verified 10/20/24 13:29 [facility] Medical History Medical History (Updated 10/24/24 @ 10:51 by Александр Pedraza DO) IBS (irritable bowel syndrome) Social History Social History Smoking Status: Current every day smoker If you are a former smoker, when did you quit? (Date/Year): n/a Number of Years Smoked: 20 How many cigarettes a day do you smoke? (20 cigarettes=1 Pk): 20 Second hand tobacco smoke exposure: No Do you dip or chew tobacco?: No Do you vape?: No Patient requests smoking cessation consult: No Initiate information on smoking cessation: No Living arrangement: At home Living Condition: Alone and With spouse/s.o. Support Person: Yes Relationship: Significant other Level: Independent Do you feel safe in your home environment?: Yes Suffered physical, verbal, emotional, or financial abuse?: No History of Abuse: No ETOH Use: Frequency: Daily Number of Amount/day: 10 Substance Use: denies use POLST Patient has POLST: No POLST Status: Full Code Results Lab Results Lab results reviewed: Yes 10/24/24 04:03 10/24/24 04:03 Other Lab Results: Lab Results x24hrs 10/24/24 10/23/24 Range/Units 04:03 14:00 WBC 21.2 H (4.8-10.8) x10^3/uL RBC 3.34 L (4.70-6.10) 10^6/uL Hgb 11.4 L (14.0-18.0) g/dL Hct 34.6 L (42.0-52.0) % MCV 103.6 H (80.0-94.0) fL MCH 34.1 H (27.0-31.0) pg MCHC 32.9 (32.0-36.0) g/dL RDW 14.4 (12.0-15.0) % Plt Count 188 (130-450) 10^3/uL MPV 9.8 (7.4-11.4) fL Neut # (Auto) 15.8 H (1.5-6.6) 10^3/uL Lymph # (Auto) 2.1 (1.5-3.5) 10^3/uL [place] # (Auto) 2.0 H (0.0-1.0) 10^3/uL Eos # (Auto) 0.6 (0.0-0.7) 10^3/uL Baso # (Auto) 0.1 (0.0-0.1) 10^3/uL Absolute Nucleated RBC 0.00 x10^3/uL Band Neuts % (Manual) Not Reportable Abnorm Lymph % (Manual) Not Reportable Nucleated RBC % 0.0 /100WBC Neutrophils # (Manual) Not Reportable Lymphocytes # (Manual) Not Reportable Monocytes # (Manual) Not Reportable Eosinophils # (Manual) Not Reportable Basophils # (Manual) Not Reportable Differential Comment MANUAL=AUTO DIFF WBC Morphology NORMAL APPEARANCE (NORMAL) Platelet Estimate NORMAL (130-450,000) (NORMAL) RBC Morph Micro Appear NORMAL APPEARANCE (NORMAL) VBG pH 7.429 H (7.31-7.41) Ionized Calcium 1.19 (1.15-1.33) mmol/L Sodium 135 (135-145) mmol/L Potassium 4.0 (3.5-4.5) mmol/L Chloride 102 (101-111) mmol/L Carbon Dioxide 26 (21-32) mmol/L Anion Gap 7.0 (6-13) BUN 3 L (6-20) mg/dL Creatinine 0.6 (0.6-1.3) mg/dL Estimated GFR (MDRD) 146 (>89) Glucose 97 (74-104) mg/dL Calcium 8.6 8.4 L (8.5-10.3) mg/dL Phosphorus 4.3 (2.5-5.0) mg/dL Magnesium 1.7 1.7 (1.7-2.3) mg/dL Review of Systems Status of ROS: 10 or more systems reviewed and unremarkable except as noted in history and below Exam Constitutional normal general appearance and no apparent distress HENMT normocephalic and head/scalp atraumatic Eyes PERRL, EOMs intact bilaterally and no scleral icterus Neck/C-Spine trachea midline Respiratory normal respiratory effort Gastrointestinal mild distension. soft and non tender Neurology speech normal believes he was admitted today because his mother was concerned about him Psychiatry cooperative Conclusion/Plan Problem List (1) Delirium tremens: (2) Alcohol use disorder: (3) Leukocytosis: (4) Electrolyte imbalance: (5) Colitis: Plan: possible mild colitis on ct scan. he has diverticulosis, a very distended stomach with food, small free fluid in pelvis which does not appear to be an abscess. recommend clear liquid diet. agree with antibiotics. will follow. consider repeat ct scan in several days if not improving. do not recommend colonoscopy at this time given possible diverticulitis with fluid in the pelvis. fluid is thin and could be small ascites from his liver disease. (6) Acute encephalopathy: Lab Results Lab results reviewed: Yes 10/24/24 04:03 10/24/24 04:03
[2024-10-25 05:23] LABS: BASOPHILS % (AUTO) 0.6 %; EOSINOPHILS % (AUTO) 2.6 %; HCT - HEMATOCRIT 34.6 % (42.0-52.0); HGB - HEMOGLOBIN 11.9 g/dL (14.0-18.0); MEAN CORPUSCULAR HEMOGLOBIN 34.8 pg (27.0-31.0); MEAN CORPUSCULAR HGB CONC 34.4 g/dL (32.0-36.0); MEAN CORPUSCULAR VOLUME 101.2 fL (80.0-94.0); NEUTROPHILS % (AUTO) 77.2 %; PLT - PLATELET COUNT 213 10^3/uL (130-450); RED BLOOD COUNT 3.42 10^6/uL (4.70-6.10); WHITE BLOOD COUNT 21.7 x10^3/uL (4.8-10.8)
[2024-10-25 05:30] LABS: ABNORMAL LYMPHS % (MANUAL) 0 %; BAND NEUTROPHILS % (MANUAL) 0 %
[2024-10-25 05:41] LABS: CALCIUM 8.8 mg/dL (8.5-10.3); CREATININE 0.6 mg/dL (0.6-1.3)
[2024-10-25 05:51] LABS: BASOPHILS # (MANUAL) 0.2 10^3/uL (0-0.1); BASOPHILS % (MANUAL) 1 %; EOSINOPHILS # (MANUAL) 1.3 10^3/uL (0-0.7); LYMPHOCYTES % (MANUAL) 9 %; MONOCYTES # (MANUAL) 1.7 10^3/uL (0.0-1.0); MYELOCYTES % (MANUAL) 1 %; NEUTROPHILS # (MANUAL) 16.3 10^3/uL (1.5-6.6)
[2024-10-25 05:53] LABS: DIFFERENTIAL COMMENT MANUAL DIFFERENTIAL; PLATELET ESTIMATE, MANUAL NORMAL (130-450,000) (NORMAL); PLATELET MORPHOLOGY NORMAL APPEARANCE (NORMAL); WBC MORPHOLOGY (MULTIPLE) NORMAL APPEARANCE (NORMAL)
[2024-10-25] MEDS: SENNA 8.6 MG TABLET PO SCH (08:11)
[2024-10-25] MEDS: DOCUSATE SODIUM 250 MG CAPSULE PO SCH (08:12)
[2024-10-25] MEDS: polyethylene glycoL 3350 17 GM PACKET PO SCH (08:18)
[2024-10-25] MEDS: NICOTINE 21 MG PATCH TOP SCH (08:19)
--- NOTE | 2024-10-25 09:09 | PROVIDER PROGRESS NOTE ---
Subjective Prog Note Date Prog Note Date: 10/25/24 Prog Note Time: 08:56 Subjective Subjective: 44 yr male comes with complaints of not feeling well for last 9 days, no meds at home lives with girlfriend has been drinking in a daily basis, last drink prior to admission was initially thought to be dc home but later found to have luekocytosis and encpahopahty and is going to be admitted for observationfor impending DT as well as Leukocytosis and encphalopathy Samiratent looks comfortable and resting when seen televideo 10/21/2024: Patient is lethargic, he has no complaints. Patient Required 3 mg of Ativan over the last 16 hours. 10/22/2024: Patient is awake, oriented x 4. He has no complaints. Patient required 2 mg of Ativan in the last 16 hours. Patient denies DTs or acute withdrawal symptoms. 10/23/2024: Patient is awake, oriented. No complaints. Patient required [place] x 2 during the nighttime for leg pain. Upon interviewing patient does not remember having leg pain. 10/24/2024: Patient is awake, oriented. No complaints, denies abdominal pain, Nausea, emesis. 10/25/2024: Patient awake, has no complaints. Is Surprised that he has been here for 5 days. Has assumed that he came in overnight. Has a difficult time to keep location straight. He is confused where he resides, with or without girlfriend, Current Medications Current Medications Current Medications: Current Medications Generic Name Dose Route Start Last Admin Trade Name Evy PRN Reason Stop Dose Admin Acetaminophen 650 mg 10/20/24 21:21 Acetaminophen 325 Mg Tablet PO Q4HR PRN Pain 1 to 4, or Fever Docusate Sodium 250 - 500 mg 10/25/24 09:00 10/25/24 08:12 Docusate Sodium 250 Mg Capsule PO 250 mg DAILY SHARRON Administration Metronidazole 500 mg in 100 mls @ 100 mls/hr 10/23/24 18:00 10/25/24 03:15 Flagyl 500 Mg/100 Ml IV Infused Q8H SHARRON Infusion Ciprofloxacin 400 mg in 200 mls @ 200 mls/hr 10/23/24 18:00 10/25/24 07:19 Cipro 400 Mg/200 Ml IV Infused Q12H SHARRON Infusion Nicotine 1 patch 10/25/24 09:00 10/25/24 08:19 Nicotine 21 Mg Patch TOP 1 patch DAILY SHARRON Administration Ondansetron HCl 4 mg 10/20/24 21:21 Ondansetron 4 Mg/2 Ml Vial IVP Q6HR PRN Nausea / Vomiting Pantoprazole Sodium 40 mg 10/21/24 07:00 10/25/24 06:20 Pantoprazole 40 Mg Tablet PO 40 mg QDAC SHARRON Administration Polyethylene Glycol 17 gm 10/25/24 09:00 10/25/24 08:18 Polyethylene Glycol 3350 17 Gm Packet PO 17 gm DAILY SHARRON Administration Multivit/Folic Acid/Iron 1 tab 10/21/24 12:00 10/24/24 13:14 Vitamin Tablet PO 1 tab QDLUNCH SHARRON Administration Senna 8.6 - 17.2 mg 10/25/24 09:00 10/25/24 08:11 Senna 8.6 Mg Tablet PO 8.6 mg DAILY SHARRON Administration Sodium Chloride 10 ml 10/21/24 01:00 10/25/24 08:12 Sodium Chloride Flush 0.9% 10 Ml Syringe IVP 10 ml 0100,0900,1700 SHARRON Administration Sodium Chloride 10 ml 10/20/24 21:21 10/21/24 06:11 Sodium Chloride Flush 0.9% 10 Ml Syringe IVP 10 ml PRN PRN Administration NEEDED PER PROVIDER ORDERS Thiamine HCl 100 mg 10/23/24 09:00 10/25/24 08:12 Thiamine 100 Mg Tablet PO 100 mg DAILY SHARRON Administration Objective Vital Signs/Intake & Output Reviewed Vital Signs: Yes Vital Signs: Vital Signs x48h Temp Pulse Resp BP Pulse Ox 10/25/24 08:07 36.7 C 107 H 16 114/85 100 Intake & Output: Intake & Output 10/22/24 10/23/24 10/24/24 10/25/24 23:59 23:59 23:59 23:59 Intake Total 4195 / 4195 3262 / 3262 1180 / 1180 300 / 300 Output Total 0 / 0 750 / 750 0 / 0 Balance 4195 / 4195 2512 / 2512 1180 / 1180 300 / 300 Weight (kg) 62.5 kg 62 kg 60 kg 58.5 kg Objective General Appearance: positive No acute distress and Alert Eyes Bilateral: positive Normal inspection and PERRL ENT: positive ENT inspection nml and Pharynx nml Neck: positive Nml inspection and Trachea midline Respiratory: positive Chest non-tender and No respiratory distress Cardiovascular: positive Regular rate & rhythm and No murmur Abdomen: positive Non-tender, No organomegaly and No distention Skin: positive Color nml and No rash Extremities: positive Non-tender and Full ROM Neurologic/Psychiatric: positive Oriented x3 and CN's nml (2-12) Lab Results 10/25/24 05:09 10/25/24 05:09 Other Labs: Lab Results x24hrs 10/25/24 10/25/24 10/25/24 Range/Units 07:34 05:09 05:09 Specimen Type BLOOD WBC 21.7 H (4.8-10.8) x10^3/uL RBC 3.42 L (4.70-6.10) 10^6/uL Hgb 11.9 L (14.0-18.0) g/dL Hct 34.6 L (42.0-52.0) % MCV 101.2 H (80.0-94.0) fL MCH 34.8 H (27.0-31.0) pg MCHC 34.4 (32.0-36.0) g/dL RDW 15.0 (12.0-15.0) % Plt Count 213 (130-450) 10^3/uL MPV 10.0 (7.4-11.4) fL Neut # (Auto) Not Reportable Lymph # (Auto) Not Reportable [place] # (Auto) Not Reportable Eos # (Auto) Not Reportable Baso # (Auto) Not Reportable Absolute Nucleated RBC Not Reportable Total Counted 100 Band Neuts % (Manual) 0 (0 - 10) % Abnorm Lymph % (Manual) 0 % Myelocytes % 1 H ( - 0) % Nucleated RBC % Not Reportable Neutrophils # (Manual) 16.3 H (1.5-6.6) 10^3/uL Lymphocytes # (Manual) 2.0 (1.5-3.5) 10^3/uL Monocytes # (Manual) 1.7 H (0.0-1.0) 10^3/uL Eosinophils # (Manual) 1.3 H (0-0.7) 10^3/uL Basophils # (Manual) 0.2 H (0-0.1) 10^3/uL Differential Comment MANUAL DIFFERENTIAL WBC Morphology NORMAL APPEARANCE (NORMAL) Platelet Estimate NORMAL (130-450,000) (NORMAL) Platelet Morphology NORMAL APPEARANCE (NORMAL) RBC Morph Micro Appear 1+ MACROCYTOSIS 1+ HYPOCHROMASIA (NORMAL) Sodium 134 L (135-145) mmol/L Potassium 4.0 (3.5-4.5) mmol/L Chloride 101 (101-111) mmol/L Carbon Dioxide 26 (21-32) mmol/L Anion Gap 7.0 (6-13) BUN 6 (6-20) mg/dL Creatinine 0.6 (0.6-1.3) mg/dL Estimated GFR (MDRD) 146 (>89) Glucose 103 (74-104) mg/dL Lactic Acid 1.1 (0.5-2.2) mmol/L Calcium 8.8 (8.5-10.3) mg/dL Diagnostic Imaging Diagnostic Imaging Results: positive Final report reviewed Assessment/Plan Problem List (1) Delirium tremens: Impression: Resolved With 24 protocol, no incidents of DTs or seizures. Continue supplemental thiamine, folic acid. (2) Alcohol use disorder: Impression: Patient is a known heavy alcohol user. Continue folic acid and Thiamine replacement Per patient's brother and patient, patient is Is not interested in alcohol cessation counseling (3) Leukocytosis: Impression: Patient has persistent leukocytosis, Now up to 22,000 which is similar to the level from yesterday. CT of the abdomen indicated possible inflammatory/Infectious colitis of the descending and sigmoid colon. Patient denies Abdominal pain or diarrhea. Last bowel movement was several days ago. Repeat Lactate is with normal limits. Patient appears nonseptic. Continue Flagyl and Cipro. Surgery consult indicated no colonoscopy due to high risk for perforation continue clear liquids, abx, conservative management Obtain blood smear, ? for blood dyscarsia obtain DIC panel, repeat blood culture, ua (4) Electrolyte imbalance: Impression: Replace electrolytes (5) Colitis: Impression: CT abdomen indicates inflammatory/infectious colitis Continue Flagyl, Cipro. Consult surgery/GI Trend leukocytosis. (6) Acute encephalopathy: Impression: Patient has episodes of mental clarity and mental fogginess. Pt seems to be confabulating which is often associated with Wernicke/Korsakoff syndrome. Pt has a long hx of Etoh use disorder check vitamin b1, tsh level Stop all sedative meds He is oriented to himself, time but confused about location. Patient has episodes of hallucinations about his mom being in his room. Last drink was about 4 days ago. There is no current signs of active alcohol withdrawal. Last ativan dosage was 2 days ago. Pt received 1 dose valium o/n CT head on admission was negative. Continue to monitor.
[2024-10-25 09:57] LABS: THYROID STIMULATING HORMONE 1.69 uIU/mL (0.34-5.60)
[2024-10-25 10:01] LABS: D-DIMER < 200.0 ng/mL (200.0-255.0); FIBRINOGEN 309 mg/dL (220-496)
[2024-10-25 11:57] LABS: BILIRUBIN,URINE NEGATIVE (NEGATIVE); GLUCOSE, URINE (UA) NEGATIVE (NEGATIVE); KETONES,URINE (UA) NEGATIVE (NEGATIVE); LEUKOCYTE ESTERASE, URINE NEGATIVE (NEGATIVE); NITRITE,URINE NEGATIVE (NEGATIVE); OCCULT BLOOD,URINE NEGATIVE (NEGATIVE); PROTEIN,URINE TRACE mg/dL (NEGATIVE); UROBILINOGEN,URINE 0.2 (NORMAL) E.U./dL (NORMAL)
[2024-10-25 12:22] LABS: BACTERIA,URINE Rare /HPF (None Seen); CLARITY,URINE CLOUDY (CLEAR); RBC,URINE 1 /HPF (0-5); SQUAMOUS EPITHELIAL CELL,UR NONE SEEN (<= Few); WBC,URINE >25 /HPF (0-3)
[2024-10-25 12:23] LABS: AMORPHOUS SEDIMENT,UR Few /LPF; CASTS, URINE >50 Granular Casts /LPF
--- NOTE | 2024-10-25 14:34 | PROVIDER PROGRESS NOTE ---
Subjective Subjective Subjective: appears well. denies abdominal discomfort and nausea. tolerating clears. passing gas Current Medications Current Medications Current Medications: Current Medications Generic Name Dose Route Start Last Admin Trade Name Freq PRN Reason Stop Dose Admin Acetaminophen 650 mg 10/20/24 21:21 Acetaminophen 325 Mg Tablet PO Q4HR PRN Pain 1 to 4, or Fever Docusate Sodium 250 - 500 mg 10/25/24 09:00 10/25/24 08:12 Docusate Sodium 250 Mg Capsule PO 250 mg DAILY SHARRON Administration Metronidazole 500 mg in 100 mls @ 100 mls/hr 10/23/24 18:00 10/25/24 10:27 Flagyl 500 Mg/100 Ml IV Infused Q8H SHARRON Infusion Ciprofloxacin 400 mg in 200 mls @ 200 mls/hr 10/23/24 18:00 10/25/24 07:19 Cipro 400 Mg/200 Ml IV Infused Q12H SHARRON Infusion Nicotine 1 patch 10/25/24 09:00 10/25/24 08:19 Nicotine 21 Mg Patch TOP 1 patch DAILY SHARRON Administration Ondansetron HCl 4 mg 10/20/24 21:21 Ondansetron 4 Mg/2 Ml Vial IVP Q6HR PRN Nausea / Vomiting Pantoprazole Sodium 40 mg 10/21/24 07:00 10/25/24 06:20 Pantoprazole 40 Mg Tablet PO 40 mg QDAC SHARRON Administration Polyethylene Glycol 17 gm 10/25/24 09:00 10/25/24 08:18 Polyethylene Glycol 3350 17 Gm Packet PO 17 gm DAILY SHARRON Administration Multivit/Folic Acid/Iron 1 tab 10/21/24 12:00 10/25/24 12:06 Vitamin Tablet PO 1 tab QDLUNCH SHARRON Administration Senna 8.6 - 17.2 mg 10/25/24 09:00 10/25/24 08:11 Senna 8.6 Mg Tablet PO 8.6 mg DAILY SHARRON Administration Sodium Chloride 10 ml 10/21/24 01:00 10/25/24 08:12 Sodium Chloride Flush 0.9% 10 Ml Syringe IVP 10 ml 0100,0900,1700 SHARRON Administration Sodium Chloride 10 ml 10/20/24 21:21 10/21/24 06:11 Sodium Chloride Flush 0.9% 10 Ml Syringe IVP 10 ml PRN PRN Administration NEEDED PER PROVIDER ORDERS Thiamine HCl 100 mg 10/23/24 09:00 10/25/24 08:12 Thiamine 100 Mg Tablet PO 100 mg DAILY SHARRON Administration Objective Vital Signs/Intake & Output Reviewed Vital Signs: Yes Vital Signs: Vital Signs x48h Temp Pulse Resp BP Pulse Ox 10/25/24 08:07 36.7 C 107 H 16 114/85 100 Intake & Output: Intake & Output 10/22/24 10/23/24 10/24/24 10/25/24 23:59 23:59 23:59 23:59 Intake Total 4195 / 4195 3262 / 3262 1180 / 1180 1405 / 1405 Output Total 0 / 0 750 / 750 0 / 0 Balance 4195 / 4195 2512 / 2512 1180 / 1180 1405 / 1405 Weight (kg) 62.5 kg 62 kg 60 kg 58.5 kg Objective General Appearance: positive No acute distress and Alert Eyes Bilateral: positive Normal inspection, PERRL and No scleral icterus Abdomen: positive Non-tender and Other (soft and less distended) Lab Results 10/25/24 05:09 10/25/24 05:09 Other Labs: Lab Results x24hrs 10/25/24 10/25/24 10/25/24 Range/Units 11:45 07:34 07:24 Specimen Type WBC (4.8-10.8) x10^3/uL RBC (4.70-6.10) 10^6/uL Hgb (14.0-18.0) g/dL Hct (42.0-52.0) % MCV (80.0-94.0) fL MCH (27.0-31.0) pg MCHC (32.0-36.0) g/dL RDW (12.0-15.0) % Plt Count (130-450) 10^3/uL MPV (7.4-11.4) fL Neut # (Auto) Lymph # (Auto) [place] # (Auto) Eos # (Auto) Baso # (Auto) Absolute Nucleated RBC Total Counted Band Neuts % (Manual) (0 - 10) % Abnorm Lymph % (Manual) % Myelocytes % ( - 0) % Nucleated RBC % Neutrophils # (Manual) (1.5-6.6) 10^3/uL Lymphocytes # (Manual) (1.5-3.5) 10^3/uL Monocytes # (Manual) (0.0-1.0) 10^3/uL Eosinophils # (Manual) (0-0.7) 10^3/uL Basophils # (Manual) (0-0.1) 10^3/uL Differential Comment WBC Morphology (NORMAL) Platelet Estimate (NORMAL) Platelet Morphology (NORMAL) RBC Morph Micro Appear (NORMAL) Fibrinogen 309 (220-496) mg/dL D-Dimer < 200.0 L (200.0-255.0) ng/mL Sodium (135-145) mmol/L Potassium (3.5-4.5) mmol/L Chloride (101-111) mmol/L Carbon Dioxide (21-32) mmol/L Anion Gap (6-13) BUN (6-20) mg/dL Creatinine (0.6-1.3) mg/dL Estimated GFR (MDRD) (>89) Glucose (74-104) mg/dL Lactic Acid 1.1 (0.5-2.2) mmol/L Calcium (8.5-10.3) mg/dL TSH (0.34-5.60) uIU/mL Urine Color BROWN Urine Clarity CLOUDY (CLEAR) Urine pH 7.0 (5.0-7.5) PH Ur Specific Stephan 1.025 (1.002-1.030) Urine Protein TRACE (NEGATIVE) mg/dL Urine Glucose (UA) NEGATIVE (NEGATIVE) mg/dL Urine Ketones NEGATIVE (NEGATIVE) mg/dL Urine Occult Blood NEGATIVE (NEGATIVE) Urine Nitrite NEGATIVE (NEGATIVE) Urine Bilirubin NEGATIVE (NEGATIVE) Urine Urobilinogen 0.2 (NORMAL) (NORMAL) E.U./dL Ur Leukocyte Esterase NEGATIVE (NEGATIVE) Urine RBC 1 (0-5) /HPF Urine WBC >25 H (0-3) /HPF Ur Squamous Epith Cells NONE SEEN (<= Few) Amorphous Sediment Few /LPF Urine Bacteria Rare (None Seen) /HPF Urine Casts >50 Granular Casts /LPF Urine Culture Comments NOT INDICATED 10/25/24 10/25/24 Range/Units 05:09 05:09 Specimen Type BLOOD WBC 21.7 H (4.8-10.8) x10^3/uL RBC 3.42 L (4.70-6.10) 10^6/uL Hgb 11.9 L (14.0-18.0) g/dL Hct 34.6 L (42.0-52.0) % MCV 101.2 H (80.0-94.0) fL MCH 34.8 H (27.0-31.0) pg MCHC 34.4 (32.0-36.0) g/dL RDW 15.0 (12.0-15.0) % Plt Count 213 (130-450) 10^3/uL MPV 10.0 (7.4-11.4) fL Neut # (Auto) Not Reportable Lymph # (Auto) Not Reportable [place] # (Auto) Not Reportable Eos # (Auto) Not Reportable Baso # (Auto) Not Reportable Absolute Nucleated RBC Not Reportable Total Counted 100 Band Neuts % (Manual) 0 (0 - 10) % Abnorm Lymph % (Manual) 0 % Myelocytes % 1 H ( - 0) % Nucleated RBC % Not Reportable Neutrophils # (Manual) 16.3 H (1.5-6.6) 10^3/uL Lymphocytes # (Manual) 2.0 (1.5-3.5) 10^3/uL Monocytes # (Manual) 1.7 H (0.0-1.0) 10^3/uL Eosinophils # (Manual) 1.3 H (0-0.7) 10^3/uL Basophils # (Manual) 0.2 H (0-0.1) 10^3/uL Differential Comment MANUAL DIFFERENTIAL WBC Morphology NORMAL APPEARANCE (NORMAL) Platelet Estimate NORMAL (130-450,000) (NORMAL) Platelet Morphology NORMAL APPEARANCE (NORMAL) RBC Morph Micro Appear 1+ MACROCYTOSIS 1+ HYPOCHROMASIA (NORMAL) Fibrinogen (220-496) mg/dL D-Dimer (200.0-255.0) ng/mL Sodium 134 L (135-145) mmol/L Potassium 4.0 (3.5-4.5) mmol/L Chloride 101 (101-111) mmol/L Carbon Dioxide 26 (21-32) mmol/L Anion Gap 7.0 (6-13) BUN 6 (6-20) mg/dL Creatinine 0.6 (0.6-1.3) mg/dL Estimated GFR (MDRD) 146 (>89) Glucose 103 (74-104) mg/dL Lactic Acid (0.5-2.2) mmol/L Calcium 8.8 (8.5-10.3) mg/dL TSH 1.69 (0.34-5.60) uIU/mL Urine Color Urine Clarity (CLEAR) Urine pH (5.0-7.5) PH Ur Specific Stephan (1.002-1.030) Urine Protein (NEGATIVE) mg/dL Urine Glucose (UA) (NEGATIVE) mg/dL Urine Ketones (NEGATIVE) mg/dL Urine Occult Blood (NEGATIVE) Urine Nitrite (NEGATIVE) Urine Bilirubin (NEGATIVE) Urine Urobilinogen (NORMAL) E.U./dL Ur Leukocyte Esterase (NEGATIVE) Urine RBC (0-5) /HPF Urine WBC (0-3) /HPF Ur Squamous Epith Cells (<= Few) Amorphous Sediment /LPF Urine Bacteria (None Seen) /HPF Urine Casts /LPF Urine Culture Comments Diagnostic Imaging Diagnostic Imaging Results: positive Read independently (possible mild colitis and small pelvic fluid which is more likely ascites than inflammatory related) Assessment/Plan Problem List (1) Delirium tremens: (2) Alcohol use disorder: (3) Leukocytosis: (4) Electrolyte imbalance: (5) Colitis: Impression: possible mild colitis. also had very distended stomach. agree with care and plan. abdomen is benign and non tender. less distended than yesterday. may slowly advance diet as tolerated. plan follow up in the surgery office after discharge and plan egd and colonoscopy in about 6 weeks. (6) Acute encephalopathy:
[2024-10-26 05:29] LABS: BASOPHILS # (AUTO) 0.1 10^3/uL (0.0-0.1); BASOPHILS % (AUTO) 0.4 %; EOSINOPHILS # (AUTO) 0.6 10^3/uL (0.0-0.7); EOSINOPHILS % (AUTO) 2.6 %; HCT - HEMATOCRIT 35.2 % (42.0-52.0); HGB - HEMOGLOBIN 12.2 g/dL (14.0-18.0); LYMPHOCYTES # (AUTO) 2.1 10^3/uL (1.5-3.5); LYMPHOCYTES % (AUTO) 9.6 %; MEAN CORPUSCULAR HGB CONC 34.7 g/dL (32.0-36.0); MEAN CORPUSCULAR VOLUME 100.9 fL (80.0-94.0); MEAN PLATELET VOLUME 10.3 fL (7.4-11.4); MONOCYTES # (AUTO) 2.3 10^3/uL (0.0-1.0); MONOCYTES % (AUTO) 10.4 %; NEUTROPHILS # (AUTO) 16.5 10^3/uL (1.5-6.6); NEUTROPHILS % (AUTO) 75.7 %; PLT - PLATELET COUNT 253 10^3/uL (130-450); RED BLOOD COUNT 3.49 10^6/uL (4.70-6.10); WHITE BLOOD COUNT 21.8 x10^3/uL (4.8-10.8)
[2024-10-26 05:42] LABS: BUN - BLOOD UREA NITROGEN 5 mg/dL (6-20); CALCIUM 8.6 mg/dL (8.5-10.3); CARBON DIOXIDE - CO2 24 mmol/L (21-32); CHLORIDE 103 mmol/L (101-111); CREATININE 0.5 mg/dL (0.6-1.3); GFR - MDRD 181 (>89); GLUCOSE 108 mg/dL (74-104); IONIZED CALCIUM IF INDICATED NO; POTASSIUM 3.9 mmol/L (3.5-4.5); SODIUM 134 mmol/L (135-145)
[2024-10-26 06:20] LABS: DIFFERENTIAL COMMENT MANUAL=AUTO DIFF; PLATELET ESTIMATE, MANUAL NORMAL (130-450,000) (NORMAL); PLATELET MORPHOLOGY NORMAL APPEARANCE (NORMAL); WBC MORPHOLOGY (MULTIPLE) NORMAL APPEARANCE (NORMAL)
--- NOTE | 2024-10-26 11:19 | Discharge Summary ---
"Discharge Summary Admit Date: 10/20/24 Discharge Date: 10/26/24 Discharging Provider: Dr Pedraza Code Status: Attempt Resuscitation DIAGNOSES Admission Diagnoses: Alcohol use disorder Severe electrolyte imbalance Leukocytosis Generalized tremors encephalopathy Discharge Diagnoses with Status of Each Condition: Alcohol use disorder: Patient has no interest in alcohol cessation or rehab Severe electrolyte imbalance: Resolved Leukocytosis: Persistent leukocytosis without elevated lactate, fevers or thought of infection. Continue amoxicillin to complete a 10 days course of antibiotics. 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 HPI History of Present Illness: 44 yr male comes with complaints of not feeling well for last 9 days, no meds at home lives with girlfriend has been drinking in a daily basis, last drink prior to admission was initially thought to be dc home but later found to have luekocytosis and encpahopahty and is going to be admitted for observationfor impending DT as well as Leukocytosis and encphalopathy Paitent looks comfortable and resting when seen televideo CONSULTS | PROCEDURES Consultations: Surgery/GI HOSPITAL COURSE Hospital Course: 10/21/2024: Patient is lethargic, he has no complaints. Patient Required 3 mg of Ativan over the last 16 hours. 10/22/2024: Patient is awake, oriented x 4. He has no complaints. Patient required 2 mg of Ativan in the last 16 hours. Patient denies DTs or acute withdrawal symptoms. 10/23/2024: Patient is awake, oriented. No complaints. Patient required [place] x 2 during the nighttime for leg pain. Upon interviewing patient does not remember having leg pain. 10/24/2024: Patient is awake, oriented. No complaints, denies abdominal pain, Nausea, emesis. 10/25/2024: Patient awake, has no complaints. Is Surprised that he has been here for 5 days. Has assumed that he came in overnight. Has a difficult time to keep location straight. He is confused where he resides, with or without girlfriend, (1) Delirium tremens: Impression: Resolved With 24 protocol, no incidents of DTs or seizures. Continue supplemental thiamine, folic acid. (2) Alcohol use disorder: Impression: Patient is a known heavy alcohol user. Continue folic acid and Thiamine replacement Per patient's brother and patient, patient is Is not interested in alcohol cessation counseling (3) Leukocytosis: Impression: Patient has persistent leukocytosis, Now up to 22,000 which is similar to the level from yesterday. CT of the abdomen indicated possible inflammatory/Infectious colitis of the descending and sigmoid colon. Patient denies Abdominal pain or diarrhea. Last bowel movement was several days ago. Repeat Lactate is with normal limits. Patient appears nonseptic. Continue Flagyl and Cipro. Surgery consult indicated no colonoscopy due to high risk for perforation continue clear liquids, abx, conservative management Obtain blood smear, ? for blood dyscarsia obtain DIC panel, repeat blood culture, ua (4) Electrolyte imbalance: Impression: Replace electrolytes (5) Colitis: Impression: CT abdomen indicates inflammatory/infectious colitis Continue Flagyl, Cipro. Consult surgery/GI Trend leukocytosis. (6) Acute encephalopathy: Impression: Patient has episodes of mental clarity and mental fogginess. Pt seems to be confabulating which is often associated with Wernicke/Korsakoff syndrome. Pt has a long hx of Etoh use disorder check vitamin b1, tsh level Stop all sedative meds He is oriented to himself, time but confused about location. Patient has episodes of hallucinations about his mom being in his room. Last drink was about 4 days ago. There is no current signs of active alcohol withdrawal. Last ativan dosage was 2 days ago. Pt received 1 dose valium o/n CT head on admission was negative. Continue to monitor. ALLERGIES Allergies Allergy/AdvReac Type Severity Reaction Status Date / Time No Known Drug Allergies Allergy Verified 10/20/24 13:29 MEDICATIONS Ambulatory Orders Medication Instructions Recorded Confirmed amoxicillin 500 mg-potassium 1 tab PO Q12H #8 tabs 10/26/24 clavulanate 125 mg tablet (Augmentin) ondansetron HCl 4 mg tablet 4 mg PO Q8H PRN nausea and 10/26/24 vomiting #20 tabs PHYSICAL EXAM AT DISCHARGE General Appearance: positive No acute distress and Alert ENT: positive ENT inspection nml and Pharynx nml Neck: positive Nml inspection and Trachea midline Respiratory: positive Chest non-tender and No respiratory distress Cardiovascular: positive Regular rate & rhythm and No murmur Abdomen: positive Non-tender and No organomegaly Back: positive Nml inspection Skin: positive Color nml and No rash Extremities: positive Non-tender and Full ROM Neurologic/Psychiatric: positive Oriented x3 and CN's nml (2-12) LABS 10/26/24 05:07 10/26/24 05:07 DIAGNOSTIC IMAGING Diagnostic Imaging Results: Final report reviewed FOLLOW UP Follow Up: Primary care physician within 1 week TIME SPENT Time Spent in Discharge (Minutes): 30 Discharge Plan Discharge Patient Disposition: SENIOR CARE, Self Care Condition: Good Medically Cleared Date:: 10/26/24 Prescriptions: New amoxicillin-pot clavulanate [Augmentin] 500-125 mg tablet 1 tab PO Q12H Qty: 8 0RF ondansetron HCl 4 mg tablet 4 mg PO Q8H PRN (Reason: nausea and vomiting) Qty: 20 0RF Activity Restrictions: No Restrictions Diet: Regular Health Concerns: Best to stop drinking alcohol and smoking You still have a persistent elevated white blood cell count, but no source of infection. You have been on antibiotics for 6 days. If you experience fever, confusion or weakness -> come back to the ER. Plan of Treatment: continue antibiotics for 4 more days Please follow-up with your primary care physician within 1 week of discharge. Print Language: Macanese Patient Instructions: Addiction Social Use Signs, Alcohol Drug Use Suspect Ch Stand Alone Forms: PCP List"
--- NOTE | 2024-10-26 13:50 | PROVIDER PROGRESS NOTE ---
Subjective Prog Note Date Prog Note Date: 10/26/24 Prog Note Time: 13:43 Subjective Subjective: 44 yr male comes with complaints of not feeling well for last 9 days, no meds at home lives with girlfriend has been drinking in a daily basis, last drink prior to admission was initially thought to be dc home but later found to have luekocytosis and encpahopahty and is going to be admitted for observationfor impending DT as well as Leukocytosis and encphalopathy Paitent looks comfortable and resting when seen televideo 10/21/2024: Patient is lethargic, he has no complaints. Patient Required 3 mg of Ativan over the last 16 hours. 10/22/2024: Patient is awake, oriented x 4. He has no complaints. Patient required 2 mg of Ativan in the last 16 hours. Patient denies DTs or acute withdrawal symptoms. 10/23/2024: Patient is awake, oriented. No complaints. Patient required [place] x 2 during the nighttime for leg pain. Upon interviewing patient does not remember having leg pain. 10/24/2024: Patient is awake, oriented. No complaints, denies abdominal pain, Nausea, emesis. 10/25/2024: Patient awake, has no complaints. Is Surprised that he has been here for 5 days. Has assumed that he came in overnight. Has a difficult time to keep location straight. He is confused where he resides, with or without girlfriend, : Pt is awake, confused at times about time and location. Pt has no complains otherwise. Current Medications Current Medications Current Medications: Current Medications Generic Name Dose Route Start Last Admin Trade Name Evy PRN Reason Stop Dose Admin Acetaminophen 650 mg 10/20/24 21:21 Acetaminophen 325 Mg Tablet PO Q4HR PRN Pain 1 to 4, or Fever Docusate Sodium 250 - 500 mg 10/25/24 09:00 10/26/24 08:36 Docusate Sodium 250 Mg Capsule PO 250 mg DAILY SHARRON Administration Metronidazole 500 mg in 100 mls @ 100 mls/hr 10/23/24 18:00 10/26/24 11:19 Flagyl 500 Mg/100 Ml IV Infused Q8H SHARRON Infusion Ciprofloxacin 400 mg in 200 mls @ 200 mls/hr 10/23/24 18:00 10/26/24 07:41 Cipro 400 Mg/200 Ml IV Infused Q12H SHARRON Infusion Nicotine 1 patch 10/25/24 09:00 10/26/24 08:36 Nicotine 21 Mg Patch TOP 1 patch DAILY SHARRON Administration Ondansetron HCl 4 mg 10/20/24 21:21 Ondansetron 4 Mg/2 Ml Vial IVP Q6HR PRN Nausea / Vomiting Pantoprazole Sodium 40 mg 10/21/24 07:00 10/26/24 05:51 Pantoprazole 40 Mg Tablet PO 40 mg QDAC SHARRON Administration Polyethylene Glycol 17 gm 10/25/24 09:00 10/26/24 08:36 Polyethylene Glycol 3350 17 Gm Packet PO 17 gm DAILY SHARRON Administration Multivit/Folic Acid/Iron 1 tab 10/21/24 12:00 10/26/24 13:17 Vitamin Tablet PO 1 tab QDLUNCH SHARRON Administration Senna 8.6 - 17.2 mg 10/25/24 09:00 10/26/24 08:36 Senna 8.6 Mg Tablet PO 8.6 mg DAILY SHARRON Administration Sodium Chloride 10 ml 10/21/24 01:00 10/26/24 08:37 Sodium Chloride Flush 0.9% 10 Ml Syringe IVP 10 ml 0100,0900,1700 SHARRON Administration Sodium Chloride 10 ml 10/20/24 21:21 10/21/24 06:11 Sodium Chloride Flush 0.9% 10 Ml Syringe IVP 10 ml PRN PRN Administration NEEDED PER PROVIDER ORDERS Thiamine HCl 100 mg 10/23/24 09:00 10/26/24 08:36 Thiamine 100 Mg Tablet PO 100 mg DAILY SHARRON Administration Objective Vital Signs/Intake & Output Reviewed Vital Signs: Yes Vital Signs: Vital Signs x48h Temp Pulse Resp BP Pulse Ox 10/26/24 09:35 36.7 C 125 H 18 123/90 98 Intake & Output: Intake & Output 10/23/24 10/24/24 10/25/24 10/26/24 23:59 23:59 23:59 23:59 Intake Total 3262 / 3262 1180 / 1180 3125 / 3125 1360 / 1360 Output Total 750 / 750 0 / 0 Balance 2512 / 2512 1180 / 1180 3125 / 3125 1360 / 1360 Weight (kg) 62 kg 60 kg 58.5 kg 61.5 kg Objective General Appearance: positive No acute distress and Alert Eyes Bilateral: positive Normal inspection and PERRL ENT: positive ENT inspection nml and Pharynx nml Neck: positive Nml inspection and Trachea midline Respiratory: positive Chest non-tender and No respiratory distress Cardiovascular: positive Regular rate & rhythm and No murmur Abdomen: positive Non-tender, No organomegaly and No distention Skin: positive Color nml and No rash Extremities: positive Non-tender and Full ROM Neurologic/Psychiatric: positive Oriented x3 and CN's nml (2-12) Lab Results 10/26/24 05:07 10/26/24 05:07 Other Labs: Lab Results x24hrs 10/26/24 10/26/24 Range/Units 05:07 05:07 WBC 21.8 H (4.8-10.8) x10^3/uL RBC 3.49 L (4.70-6.10) 10^6/uL Hgb 12.2 L (14.0-18.0) g/dL Hct 35.2 L (42.0-52.0) % MCV 100.9 H (80.0-94.0) fL MCH 35.0 H (27.0-31.0) pg MCHC 34.7 (32.0-36.0) g/dL RDW 15.0 (12.0-15.0) % Plt Count 253 (130-450) 10^3/uL MPV 10.3 (7.4-11.4) fL Neut # (Auto) 16.5 H (1.5-6.6) 10^3/uL Lymph # (Auto) 2.1 (1.5-3.5) 10^3/uL [place] # (Auto) 2.3 H (0.0-1.0) 10^3/uL Eos # (Auto) 0.6 (0.0-0.7) 10^3/uL Baso # (Auto) 0.1 (0.0-0.1) 10^3/uL Absolute Nucleated RBC 0.00 x10^3/uL Band Neuts % (Manual) Not Reportable Abnorm Lymph % (Manual) Not Reportable Nucleated RBC % 0.0 /100WBC Neutrophils # (Manual) Not Reportable Lymphocytes # (Manual) Not Reportable Monocytes # (Manual) Not Reportable Eosinophils # (Manual) Not Reportable Basophils # (Manual) Not Reportable Differential Comment MANUAL=AUTO DIFF WBC Morphology NORMAL APPEARANCE (NORMAL) Platelet Estimate NORMAL (130-450,000) (NORMAL) Platelet Morphology NORMAL APPEARANCE (NORMAL) RBC Morph Micro Appear 1+ HYPOCHROMASIA 1+ MACROCYTOSIS (NORMAL) Sodium 134 L (135-145) mmol/L Potassium 3.9 (3.5-4.5) mmol/L Chloride 103 (101-111) mmol/L Carbon Dioxide 24 (21-32) mmol/L Anion Gap 7.0 (6-13) BUN 5 L (6-20) mg/dL Creatinine 0.5 L (0.6-1.3) mg/dL Estimated GFR (MDRD) 181 (>89) Glucose 108 H (74-104) mg/dL Calcium 8.6 (8.5-10.3) mg/dL Ionized Calcium NO Diagnostic Imaging Diagnostic Imaging Results: positive Final report reviewed Assessment/Plan Problem List (1) Delirium tremens: Impression: Resolved With 24 protocol, no incidents of DTs or seizures. Continue supplemental thiamine, folic acid. (2) Alcohol use disorder: Impression: Patient is a known heavy alcohol user. Continue folic acid and Thiamine replacement Per patient's brother and patient, patient is Is not interested in alcohol cessation counseling (3) Leukocytosis: Impression: Patient has persistent leukocytosis, Now stable at around to 22,000 which is similar to the level from yesterday. CT of the abdomen indicated possible inflammatory/Infectious colitis of the descending and sigmoid colon. Patient denies Abdominal pain or diarrhea. Last bowel movement was several days ago. Repeat Lactate is with normal limits. Patient appears nonseptic. Continue Flagyl and Cipro. Surgery consult indicated no colonoscopy due to high risk for perforation continue clear liquids, abx, conservative management follow blood smear, ? for blood dyscarsia repeat blood culture, ua, DIC -> negative (4) Electrolyte imbalance: Impression: Replace electrolytes (5) Colitis: Impression: CT abdomen indicates inflammatory/infectious colitis Continue Flagyl, Cipro. Consult surgery/GI Trend leukocytosis. (6) Acute encephalopathy: Impression: Patient has episodes of mental clarity and mental fogginess. Pt seems to be confabulating which is often associated with Wernicke/Korsakoff syndrome. Pt has a long hx of Etoh use disorder > 25 years check vitamin b1, tsh level wnl Stopped all sedative meds CT head on admission was negative. Repeat CT head today Brother is persuing poa since pt is persistently, pleasantly, episodically confused. Continue to monitor.
[2024-10-26] MEDS ORDERED: iohexoL-300 100 ML VIAL ONE (14:30)
[2024-10-26] MEDS: iohexoL-300 100 ML VIAL IVP ONE (15:20)
--- NOTE | 2024-10-26 15:21 | CT Report ---
PROCEDURE: CT Head W INDICATIONS: persistent confusion CONTRAST: Omni 300 100ml TECHNIQUE: 4.5 mm thick angled axial sections acquired from the foramen magnum to the vertex after the administr ation of intravenous contrast. For radiation dose reduction, the following was used: automated expo sure control, adjustment of mA and/or kV according to patient size. COMPARISON: 10/20/2024 FINDINGS: Image quality: Diagnostic CSF spaces: Basal cisterns are patent. Lateral ventricles are symmetric. Volume: Generally maintained Brain: No focal suspicious enhancing lesion. Grossly unremarkable vascular structures on this venous phase CT. Craniofacial structures: No significant paranasal sinus opacity. IMPRESSION: No acute intracranial abnormality. Within the limits of CT, no suspicious intracranial enhancement. I f there are no contraindications, MRI is more sensitive. Reviewed by: Ethan Ramos MD on 10/26/2024 2:[address] [facility] Approved by: Ethan Ramos MD on 10/26/2024 2:[address] [facility] Station ID: [id number]
[2024-10-27 06:19] LABS: BASOPHILS # (AUTO) 0.1 10^3/uL (0.0-0.1); BASOPHILS % (AUTO) 0.5 %; EOSINOPHILS # (AUTO) 0.5 10^3/uL (0.0-0.7); EOSINOPHILS % (AUTO) 2.3 %; HCT - HEMATOCRIT 34.9 % (42.0-52.0); HGB - HEMOGLOBIN 11.7 g/dL (14.0-18.0); LYMPHOCYTES # (AUTO) 2.2 10^3/uL (1.5-3.5); LYMPHOCYTES % (AUTO) 9.7 %; MEAN CORPUSCULAR HEMOGLOBIN 33.8 pg (27.0-31.0); MEAN CORPUSCULAR HGB CONC 33.5 g/dL (32.0-36.0); MEAN CORPUSCULAR VOLUME 100.9 fL (80.0-94.0); MEAN PLATELET VOLUME 9.8 fL (7.4-11.4); MONOCYTES # (AUTO) 2.5 10^3/uL (0.0-1.0); MONOCYTES % (AUTO) 10.9 %; NEUTROPHILS # (AUTO) 16.9 10^3/uL (1.5-6.6); NEUTROPHILS % (AUTO) 75.5 %; PLT - PLATELET COUNT 309 10^3/uL (130-450); RED BLOOD COUNT 3.46 10^6/uL (4.70-6.10); RED CELL DISTRIBUTION WIDTH 14.8 % (12.0-15.0); WHITE BLOOD COUNT 22.4 x10^3/uL (4.8-10.8)
[2024-10-27 06:43] LABS: BUN - BLOOD UREA NITROGEN 6 mg/dL (6-20); CALCIUM 8.5 mg/dL (8.5-10.3); CARBON DIOXIDE - CO2 23 mmol/L (21-32); CHLORIDE 104 mmol/L (101-111); CREATININE 0.6 mg/dL (0.6-1.3); GFR - MDRD 146 (>89); GLUCOSE 106 mg/dL (74-104); IONIZED CALCIUM IF INDICATED NO; POTASSIUM 3.7 mmol/L (3.5-4.5); SODIUM 135 mmol/L (135-145)
[2024-10-27 06:48] LABS: DIFFERENTIAL COMMENT MANUAL=AUTO DIFF; PLATELET ESTIMATE, MANUAL NORMAL (130-450,000) (NORMAL); PLATELET MORPHOLOGY NORMAL APPEARANCE (NORMAL); RBC MORPHOLOGY (MULTIPLE) NORMAL APPEARANCE (NORMAL); WBC MORPHOLOGY (MULTIPLE) NORMAL APPEARANCE (NORMAL)
[2024-10-27 08:49] LABS: ALBUMIN 3.2 g/dL (3.2-5.5); BILIRUBIN,DIRECT 0.14 mg/dL (0.03-0.18); BILIRUBIN,TOTAL 0.6 mg/dL (0.2-1.0); CRP - C-REACTIVE PROTEIN 2.1 mg/dL (<0.5); TOTAL PROTEIN 6.3 g/dL (6.4-8.9)
--- NOTE | 2024-10-27 11:50 | PROVIDER PROGRESS NOTE ---
Subjective Prog Note Date Prog Note Date: 10/27/24 Prog Note Time: 11:49 Subjective Subjective: 44 yr male comes with complaints of not feeling well for last 9 days, no meds at home lives with girlfriend has been drinking in a daily basis, last drink prior to admission was initially thought to be dc home but later found to have luekocytosis and encpahopahty and is going to be admitted for observationfor impending DT as well as Leukocytosis and encphalopathy Samiratent looks comfortable and resting when seen televideo 10/21/2024: Patient is lethargic, he has no complaints. Patient Required 3 mg of Ativan over the last 16 hours. 10/22/2024: Patient is awake, oriented x 4. He has no complaints. Patient required 2 mg of Ativan in the last 16 hours. Patient denies DTs or acute withdrawal symptoms. 10/23/2024: Patient is awake, oriented. No complaints. Patient required [place] x 2 during the nighttime for leg pain. Upon interviewing patient does not remember having leg pain. 10/24/2024: Patient is awake, oriented. No complaints, denies abdominal pain, Nausea, emesis. 10/25/2024: Patient awake, has no complaints. Is Surprised that he has been here for 5 days. Has assumed that he came in overnight. Has a difficult time to keep location straight. He is confused where he resides, with or without girlfriend, 10/26/2024: Pt is awake, confused at times about time and location. Pt has no complains otherwise. 10/27/2024: Patient awake, eating breakfast, walking around, patient still has times of confusion. Patient has no complaints. Current Medications Current Medications Current Medications: Current Medications Generic Name Dose Route Start Last Admin Trade Name Freq PRN Reason Stop Dose Admin Acetaminophen 650 mg 10/20/24 21:21 Acetaminophen 325 Mg Tablet PO Q4HR PRN Pain 1 to 4, or Fever Docusate Sodium 250 - 500 mg 10/25/24 09:00 10/27/24 09:30 Docusate Sodium 250 Mg Capsule PO 250 mg DAILY HSARRON Administration Metronidazole 500 mg in 100 mls @ 100 mls/hr 10/23/24 18:00 10/27/24 10:35 Flagyl 500 Mg/100 Ml IV Infused Q8H SHARRON Infusion Ciprofloxacin 400 mg in 200 mls @ 200 mls/hr 10/23/24 18:00 10/27/24 06:51 Cipro 400 Mg/200 Ml IV Infused Q12H SHARRON Infusion Nicotine 1 patch 10/25/24 09:00 10/27/24 09:30 Nicotine 21 Mg Patch TOP 1 patch DAILY SHARRON Administration Ondansetron HCl 4 mg 10/20/24 21:21 Ondansetron 4 Mg/2 Ml Vial IVP Q6HR PRN Nausea / Vomiting Pantoprazole Sodium 40 mg 10/21/24 07:00 10/27/24 05:52 Pantoprazole 40 Mg Tablet PO 40 mg QDAC SHARRON Administration Polyethylene Glycol 17 gm 10/25/24 09:00 10/27/24 09:30 Polyethylene Glycol 3350 17 Gm Packet PO 17 gm DAILY SHARRON Administration Multivit/Folic Acid/Iron 1 tab 10/21/24 12:00 10/26/24 13:17 Vitamin Tablet PO 1 tab QDLUNCH SHARRON Administration Senna 8.6 - 17.2 mg 10/25/24 09:00 10/27/24 09:30 Senna 8.6 Mg Tablet PO 8.6 mg DAILY SHARRON Administration Sodium Chloride 10 ml 10/21/24 01:00 10/27/24 09:31 Sodium Chloride Flush 0.9% 10 Ml Syringe IVP 10 ml 0100,0900,1700 SHARRON Administration Sodium Chloride 10 ml 10/20/24 21:21 10/27/24 05:52 Sodium Chloride Flush 0.9% 10 Ml Syringe IVP 10 ml PRN PRN Administration NEEDED PER PROVIDER ORDERS Thiamine HCl 100 mg 10/23/24 09:00 10/27/24 09:30 Thiamine 100 Mg Tablet PO 100 mg DAILY SHARRON Administration Objective Vital Signs/Intake & Output Reviewed Vital Signs: Yes Vital Signs: Vital Signs x48h Temp Pulse Resp BP Pulse Ox 10/26/24 09:35 36.7 C 125 H 18 123/90 98 Intake & Output: Intake & Output 10/24/24 10/25/24 10/26/24 10/27/24 23:59 23:59 23:59 23:59 Intake Total 1180 / 1180 3125 / 3125 2830 / 2830 450 / 450 Output Total 0 / 0 Balance 1180 / 1180 3125 / 3125 2830 / 2830 450 / 450 Weight (kg) 60 kg 58.5 kg 61.5 kg 58.5 kg Objective General Appearance: positive No acute distress and Alert Eyes Bilateral: positive Normal inspection and PERRL ENT: positive ENT inspection nml and Pharynx nml Neck: positive Nml inspection and Trachea midline Respiratory: positive Chest non-tender and No respiratory distress Cardiovascular: positive Regular rate & rhythm and No murmur Abdomen: positive Non-tender, No organomegaly and No distention Skin: positive Color nml and No rash Extremities: positive Non-tender and Full ROM Neurologic/Psychiatric: positive Oriented x3 and CN's nml (2-12) Lab Results 10/27/24 06:05 10/27/24 06:05 Other Labs: Lab Results x24hrs 10/27/24 10/27/24 Range/Units 08:29 06:05 WBC 22.4 H (4.8-10.8) x10^3/uL RBC 3.46 L (4.70-6.10) 10^6/uL Hgb 11.7 L (14.0-18.0) g/dL Hct 34.9 L (42.0-52.0) % MCV 100.9 H (80.0-94.0) fL MCH 33.8 H (27.0-31.0) pg MCHC 33.5 (32.0-36.0) g/dL RDW 14.8 (12.0-15.0) % Plt Count 309 (130-450) 10^3/uL MPV 9.8 (7.4-11.4) fL Neut # (Auto) 16.9 H (1.5-6.6) 10^3/uL Lymph # (Auto) 2.2 (1.5-3.5) 10^3/uL [place] # (Auto) 2.5 H (0.0-1.0) 10^3/uL Eos # (Auto) 0.5 (0.0-0.7) 10^3/uL Baso # (Auto) 0.1 (0.0-0.1) 10^3/uL Absolute Nucleated RBC 0.00 x10^3/uL Band Neuts % (Manual) Not Reportable Abnorm Lymph % (Manual) Not Reportable Nucleated RBC % 0.0 /100WBC Neutrophils # (Manual) Not Reportable Lymphocytes # (Manual) Not Reportable Monocytes # (Manual) Not Reportable Eosinophils # (Manual) Not Reportable Basophils # (Manual) Not Reportable Differential Comment MANUAL=AUTO DIFF WBC Morphology NORMAL APPEARANCE (NORMAL) Platelet Estimate NORMAL (130-450,000) (NORMAL) Platelet Morphology NORMAL APPEARANCE (NORMAL) RBC Morph Micro Appear NORMAL APPEARANCE (NORMAL) ESR 30 H (0-15) mm/Hr D-Dimer 209.2 (200.0-255.0) ng/mL Sodium 135 (135-145) mmol/L Potassium 3.7 (3.5-4.5) mmol/L Chloride 104 (101-111) mmol/L Carbon Dioxide 23 (21-32) mmol/L Anion Gap 8.0 (6-13) BUN 6 (6-20) mg/dL Creatinine 0.6 (0.6-1.3) mg/dL Estimated GFR (MDRD) 146 (>89) Glucose 106 H (74-104) mg/dL Calcium 8.5 (8.5-10.3) mg/dL Ionized Calcium NO Total Bilirubin 0.6 (0.2-1.0) mg/dL Direct Bilirubin 0.14 (0.03-0.18) mg/dL AST 33 (10-42) IU/L ALT 11 (10-60) IU/L Alkaline Phosphatase 108 (42-121) IU/L C-Reactive Protein 2.1 H (<0.5) mg/dL Total Protein 6.3 L (6.4-8.9) g/dL Albumin 3.2 (3.2-5.5) g/dL Globulin 3.1 (2.1-4.2) g/dL Diagnostic Imaging Diagnostic Imaging Results: positive Final report reviewed Assessment/Plan Problem List (1) Delirium tremens: Impression: Resolved With 24 protocol, no incidents of DTs or seizures. Continue supplemental thiamine, folic acid. (2) Alcohol use disorder: Impression: Patient is a known heavy alcohol user. Continue folic acid and Thiamine replacement Per patient's brother and patient, patient is Is not interested in alcohol cessation counseling (3) Leukocytosis: Impression: Patient has persistent leukocytosis, Now stable at around to 22,000 which is similar to the level from yesterday. CT of the abdomen indicated possible inflammatory/Infectious colitis of the descending and sigmoid colon. Patient denies Abdominal pain or diarrhea. Last bowel movement was several days ago. Repeat Lactate is with normal limits x 3 Patient appears nonseptic. Completed [facility] 5 Surgery consult indicated no colonoscopy due to high risk for perforation Etiology of patient's Persistent leukocytosis unclear at this time. Patient is afebrile, slightly elevated heart rate, stable blood pressure. follow blood smear, repeat blood culture, ua, DIC -> negative Repeat liver panel, bilirubin, Alkaline phosphatase with normal limits. C- reactive protein is slightly elevated at 2.[address] head yesterday negative for any acute pathological issues. Ordered Doppler of lower and upper extremities To rule out DVT (4) Electrolyte imbalance: Impression: Replace electrolytes (5) Colitis: Impression: CT abdomen indicates inflammatory/infectious colitis Completed [facility] (5). Consult surgery/GI Trend leukocytosis. (6) Acute encephalopathy: Impression: Patient has episodes of mental clarity and mental fogginess. Pt seems to be confabulating which is often associated with Wernicke/Korsakoff syndrome. Pt has a long hx of Etoh use disorder > 25 years follow vitamin b1,Folate, tsh level wnl Stopped all sedative meds CT head on admission was negative. Repeat CT head Is negative for acute pathological issues. ?Unifying diagnosis of confusion and leukocytosis in the background of long-term alcohol use. Brother is persuing poa since pt is persistently, pleasantly, episodically confused. Continue to monitor.
--- NOTE | 2024-10-27 14:44 | Ultrasound Report ---
PROCEDURE: US Venous Duplex bilateral lower extremities INDICATIONS: Bilateral lower extremity swelling, clinical suspicion of deep vein thrombosis. TECHNIQUE: Real-time imaging, as well as color and pulse Doppler interrogation, were performed of the deep veins of both legs from the inguinal ligament to the popliteal fossa, visualization of the calf veins was performed. COMPARISON: No prior ultrasound FINDINGS: Mild nonspecific subcutaneous tissue edema consistent with reported history of soft tissue swelling. The deep veins including the right common femoral, superficial femoral, profunda femoral, popliteal, posterior tibial, peroneal veins are normally compressible, and free of intraluminal thrombus. Color and pulse Doppler demonstrate normal phasic intravascular flow. There is normal augmentation respon se to distal compression maneuver. IMPRESSION: No ultrasound evidence of deep vein thrombosis bilateral lower extremities. Reviewed by: Micky Martinez MD on 10/27/2024 2:43 PM PST Approved by: Micky Martinez MD on 10/27/2024 2:43 PM PST Station ID: [id number]
--- NOTE | 2024-10-27 14:46 | Ultrasound Report ---
PROCEDURE: US Venous Duplex bilateral upper extremities INDICATIONS: Bilateral upper extremity swelling, pain, leukocytosis, clinical suspicion of deep vein thrombosis per notes TECHNIQUE: Real-time imaging, as well as color and pulse Doppler interrogation, were performed of the deep veins of both legs from the inguinal ligament to the popliteal fossa. Attempted visualization of the calf veins was performed. 45 images COMPARISON: No prior ultrasound. FINDINGS: The deep veins of the bilateral upper extremities including the internal jugular, subclavian, axillar y, brachial, basilic, cephalic veins are normally compressible, and free of intraluminal thrombus. C olor and pulse Doppler demonstrate normal phasic intravascular flow. There is normal augmentation re sponse to distal compression maneuver. IMPRESSION: No ultrasound evidence of deep vein thrombosis bilateral upper extremities. Reviewed by: Micky Martinez MD on 10/27/2024 2:45 PM PST Approved by: Micky Martinez MD on 10/27/2024 2:45 PM PST Station ID: [id number]
[2024-10-28 06:21] LABS: BASOPHILS % (AUTO) 0.5 %; HCT - HEMATOCRIT 31.5 % (42.0-52.0); HGB - HEMOGLOBIN 10.8 g/dL (14.0-18.0); LYMPHOCYTES % (AUTO) 9.8 %; MEAN CORPUSCULAR HEMOGLOBIN 35.1 pg (27.0-31.0); MEAN CORPUSCULAR HGB CONC 34.3 g/dL (32.0-36.0); MEAN CORPUSCULAR VOLUME 102.3 fL (80.0-94.0); MEAN PLATELET VOLUME 9.7 fL (7.4-11.4); NEUTROPHILS % (AUTO) 75.7 %; PLT - PLATELET COUNT 285 10^3/uL (130-450); RED BLOOD COUNT 3.08 10^6/uL (4.70-6.10); RED CELL DISTRIBUTION WIDTH 14.9 % (12.0-15.0); WHITE BLOOD COUNT 20.8 x10^3/uL (4.8-10.8)
[2024-10-28 06:26] LABS: ABNORMAL LYMPHS % (MANUAL) 0 %; BAND NEUTROPHILS % (MANUAL) 0 %
[2024-10-28 06:35] LABS: BUN - BLOOD UREA NITROGEN 9 mg/dL (6-20); CALCIUM 8.3 mg/dL (8.5-10.3); CARBON DIOXIDE - CO2 24 mmol/L (21-32); CHLORIDE 103 mmol/L (101-111); CREATININE 0.6 mg/dL (0.6-1.3); GFR - MDRD 146 (>89); GLUCOSE 106 mg/dL (74-104); IONIZED CALCIUM IF INDICATED YES; POTASSIUM 3.4 mmol/L (3.5-4.5); SODIUM 135 mmol/L (135-145)
[2024-10-28 06:38] LABS: CALCIUM, IONIZED 1.12 mmol/L (1.15-1.33); VBG PH 7.421 (7.31-7.41)
[2024-10-28 07:20] LABS: BASOPHILS # (MANUAL) 0.2 10^3/uL (0-0.1); BASOPHILS % (MANUAL) 1 %; EOSINOPHILS # (MANUAL) 0.4 10^3/uL (0-0.7); LYMPHOCYTES # (MANUAL) 1.7 10^3/uL (1.5-3.5); LYMPHOCYTES % (MANUAL) 6 %; MONOCYTES # (MANUAL) 1.9 10^3/uL (0.0-1.0); NEUTROPHILS # (MANUAL) 16.6 10^3/uL (1.5-6.6); REACTIVE LYMPHS % (MANUAL) 2 %
[2024-10-28 07:21] LABS: RBC MORPHOLOGY (MULTIPLE) 1+ ANISOCYTOSIS (NORMAL)
[2024-10-28 07:54] LABS: DIFFERENTIAL COMMENT MANUAL DIFFERENTIAL
[2024-10-28] MEDS: FOLIC ACID 1 MG TABLET PO SCH (09:39)
--- NOTE | 2024-10-28 12:24 | PROVIDER PROGRESS NOTE ---
Subjective Subjective Subjective: Patient is a 44-year-old male with a history of alcohol use who presented due to altered mental status. He presented on the patient is oriented x 2. He is a little confused about what brought him to the hospital. He thinks it is a football injury. He does endorse drinking daily, beers. He states that he is currently living on his own. He does appear little confused at times. He has a new rash on his face, which he states is mildly itchy. Current Medications Current Medications Current Medications: Current Medications Generic Name Dose Route Start Last Admin Trade Name Freq PRN Reason Stop Dose Admin Acetaminophen 650 mg 10/20/24 21:21 Acetaminophen 325 Mg Tablet PO Q4HR PRN Pain 1 to 4, or Fever Docusate Sodium 250 - 500 mg 10/25/24 09:00 10/28/24 09:39 Docusate Sodium 250 Mg Capsule PO 500 mg DAILY SHARRON Administration Folic Acid 1 mg 10/28/24 09:00 10/28/24 09:39 Folic Acid 1 Mg Tablet PO 1 mg DAILY SHARRON Administration Nicotine 1 patch 10/25/24 09:00 10/28/24 09:39 Nicotine 21 Mg Patch TOP 1 patch DAILY SHARRON Administration Ondansetron HCl 4 mg 10/20/24 21:21 Ondansetron 4 Mg/2 Ml Vial IVP Q6HR PRN Nausea / Vomiting Pantoprazole Sodium 40 mg 10/21/24 07:00 10/28/24 06:23 Pantoprazole 40 Mg Tablet PO 40 mg QDAC SHARRON Administration Polyethylene Glycol 17 gm 10/25/24 09:00 10/28/24 09:40 Polyethylene Glycol 3350 17 Gm Packet PO 17 gm DAILY SHARRON Administration Multivit/Folic Acid/Iron 1 tab 10/21/24 12:00 10/27/24 12:32 Vitamin Tablet PO 1 tab QDLUNCH SHARRON Administration Senna 8.6 - 17.2 mg 10/25/24 09:00 10/28/24 09:40 Senna 8.6 Mg Tablet PO 17.2 mg DAILY SHARRON Administration Sodium Chloride 10 ml 10/21/24 01:00 10/28/24 09:39 Sodium Chloride Flush 0.9% 10 Ml Syringe IVP 10 ml 0100,0900,1700 SHARRON Administration Sodium Chloride 10 ml 10/20/24 21:21 10/27/24 05:52 Sodium Chloride Flush 0.9% 10 Ml Syringe IVP 10 ml PRN PRN Administration NEEDED PER PROVIDER ORDERS Thiamine HCl 100 mg 10/23/24 09:00 10/28/24 09:39 Thiamine 100 Mg Tablet PO 100 mg DAILY SHARRON Administration Objective Vital Signs/Intake & Output Reviewed Vital Signs: Yes Vital Signs: Vital Signs x48h Temp Pulse Resp BP Pulse Ox 10/26/24 09:35 36.7 C 125 H 18 123/90 98 Intake & Output: Intake & Output 10/25/24 10/26/24 10/27/24 10/28/24 23:59 23:59 23:59 23:59 Intake Total 3125 / 3125 2830 / 2830 1570 / 1570 560 / 560 Balance 3125 / 3125 2830 / 2830 1570 / 1570 560 / 560 Weight (kg) 58.5 kg 61.5 kg 58.5 kg Objective General Appearance: positive No acute distress and Alert Eyes Bilateral: positive Normal inspection and PERRL ENT: positive ENT inspection nml and Pharynx nml Neck: positive Nml inspection and Trachea midline Respiratory: positive Chest non-tender and No respiratory distress Cardiovascular: positive Regular rate & rhythm and No murmur Abdomen: positive Non-tender, No organomegaly and No distention Skin: positive Color nml and Skin rash (dry, flaking around arriola, and between eyebrows) Extremities: positive Non-tender and Full ROM Neurologic/Psychiatric: positive Oriented x3 and CN's nml (2-12) Lab Results 10/28/24 06:02 10/28/24 06:02 Other Labs: Lab Results x24hrs 10/28/24 10/28/24 10/24/24 Range/Units 06:02 06:02 05:09 WBC 20.8 H (4.8-10.8) x10^3/uL RBC 3.08 L (4.70-6.10) 10^6/uL Hgb 10.8 L (14.0-18.0) g/dL Hct 31.5 L (42.0-52.0) % MCV 102.3 H (80.0-94.0) fL MCH 35.1 H (27.0-31.0) pg MCHC 34.3 (32.0-36.0) g/dL RDW 14.9 (12.0-15.0) % Plt Count 285 (130-450) 10^3/uL MPV 9.7 (7.4-11.4) fL Neut # (Auto) BOTTLE SELECTOR Lymph # (Auto) BOTTLE SELECTOR Payne # (Auto) BOTTLE SELECTOR Eos # (Auto) BOTTLE SELECTOR Baso # (Auto) BOTTLE SELECTOR Absolute Nucleated RBC BOTTLE SELECTOR Total Counted 100 Band Neuts % (Manual) 0 (0 - 10) % Reactive Lymphs % (Man) 2 % Abnorm Lymph % (Manual) 0 % Nucleated RBC % BOTTLE SELECTOR Neutrophils # (Manual) 16.6 H (1.5-6.6) 10^3/uL Lymphocytes # (Manual) 1.7 (1.5-3.5) 10^3/uL Monocytes # (Manual) 1.9 H (0.0-1.0) 10^3/uL Eosinophils # (Manual) 0.4 (0-0.7) 10^3/uL Basophils # (Manual) 0.2 H (0-0.1) 10^3/uL Differential Comment MANUAL DIFFERENTIAL RBC Morph Micro Appear 1+ ANISOCYTOSIS (NORMAL) VBG pH 7.421 H (7.31-7.41) Ionized Calcium YES 1.12 L (1.15-1.33) mmol/L Sodium 135 (135-145) mmol/L Potassium 3.4 L (3.5-4.5) mmol/L Chloride 103 (101-111) mmol/L Carbon Dioxide 24 (21-32) mmol/L Anion Gap 8.0 (6-13) BUN 9 (6-20) mg/dL Creatinine 0.6 (0.6-1.3) mg/dL Estimated GFR (MDRD) 146 (>89) Glucose 106 H (74-104) mg/dL Calcium 8.3 L (8.5-10.3) mg/dL Whole Bld Vitamin B1 229.9 H (66.5-200.0) nmol/L Diagnostic Imaging Diagnostic Imaging Results: positive Final report reviewed Assessment/Plan Problem List (1) Delirium tremens: Impression: Resolved. No incidents of DTs or seizures. Continue supplemental thiamine, folic acid, multivitamin. Encouraged alcohol cessation. (2) Acute encephalopathy: Impression: Patient has episodes of mental clarity and mental fogginess. Patient seems to be confabulating which is often associated with Wernicke/Korsakoff syndrome. Patient has has a long history of alcohol use disorder > [address] head on admission was negative. HIV, syphilis, trichomonas, gonorrhea, chalmydia testing ordered, pending. (3) Leukocytosis: Impression: Patient has persistent leukocytosis, stable. He is afebrile. Mildly tachycardic with heart rate in the 1-teens. Completed a course of ciprofloxacin as well as Flagyl. CT abdomen/pelvis showed possible colitis of descending and sigmoid colon. DVT of upper and lower extremities negative for any acute DVTs. Qualifiers: Leukocytosis type: unspecified Qualified Code(s): D72.829 - Elevated white blood cell count, unspecified (4) Alcohol use disorder: Impression: Continue to encourage alcohol cessation. Continue supplements as stated above. (5) Colitis: Impression: Completed a course of ciprofloxacin as well as Flagyl. CT abdomen/pelvis showed possible colitis of descending and sigmoid colon.
[2024-10-28 13:23] LABS: PATHOLOGIST SLIDE COMMENTS SEE SEPARATE REPORT
[2024-10-28] MEDS: HYDROCORTISONE 1% OINTMENT 28 GM TUBE TOP SCH (13:44)
[2024-10-28 19:07] LABS: CHLAMYDIA TRACHOMATIS DNA NEGATIVE (NEGATIVE); NEISSERIA GONORRHOEAE DNA NEGATIVE (NEGATIVE); TRICHOMONAS VAGINALIS DNA NEGATIVE (NEGATIVE)
[2024-10-29 01:07] LABS: HIV SCREEN 4TH GENERATION Non Reactive (Non Reactive)
[2024-10-29] MEDS: ACETAMINOPHEN 325 MG TABLET PO PRN (02:14)
[2024-10-29 05:58] LABS: BASOPHILS # (AUTO) 0.1 10^3/uL (0.0-0.1); BASOPHILS % (AUTO) 0.6 %; EOSINOPHILS # (AUTO) 0.5 10^3/uL (0.0-0.7); HCT - HEMATOCRIT 29.4 % (42.0-52.0); HGB - HEMOGLOBIN 9.9 g/dL (14.0-18.0); LYMPHOCYTES # (AUTO) 1.9 10^3/uL (1.5-3.5); LYMPHOCYTES % (AUTO) 11.2 %; MEAN CORPUSCULAR HEMOGLOBIN 34.4 pg (27.0-31.0); MEAN CORPUSCULAR HGB CONC 33.7 g/dL (32.0-36.0); MEAN CORPUSCULAR VOLUME 102.1 fL (80.0-94.0); MEAN PLATELET VOLUME 9.5 fL (7.4-11.4); MONOCYTES # (AUTO) 1.9 10^3/uL (0.0-1.0); NEUTROPHILS # (AUTO) 12.7 10^3/uL (1.5-6.6); NEUTROPHILS % (AUTO) 73.3 %; PLT - PLATELET COUNT 333 10^3/uL (130-450); RED BLOOD COUNT 2.88 10^6/uL (4.70-6.10); RED CELL DISTRIBUTION WIDTH 14.9 % (12.0-15.0); WHITE BLOOD COUNT 17.3 x10^3/uL (4.8-10.8)
[2024-10-29 06:07] LABS: RPR Non Reactive (Non Reactive)
[2024-10-29 06:08] LABS: BUN - BLOOD UREA NITROGEN 7 mg/dL (6-20); CALCIUM 8.2 mg/dL (8.5-10.3); CARBON DIOXIDE - CO2 24 mmol/L (21-32); CHLORIDE 105 mmol/L (101-111); CREATININE 0.5 mg/dL (0.6-1.3); GFR - MDRD 181 (>89); GLUCOSE 104 mg/dL (74-104); IONIZED CALCIUM IF INDICATED YES; POTASSIUM 3.4 mmol/L (3.5-4.5); SODIUM 135 mmol/L (135-145)
[2024-10-29 06:28] LABS: CALCIUM, IONIZED 1.13 mmol/L (1.15-1.33); VBG PH 7.488 (7.31-7.41)
[2024-10-29 06:38] LABS: DIFFERENTIAL COMMENT MANUAL=AUTO DIFF; PLATELET ESTIMATE, MANUAL NORMAL (130-450,000) (NORMAL); RBC MORPHOLOGY (MULTIPLE) NORMAL APPEARANCE (NORMAL)
--- NOTE | 2024-10-29 11:11 | PROVIDER PROGRESS NOTE ---
Subjective Subjective Subjective: Patient is a 44-year-old male with a history of alcohol use who presented due to altered mental status. He presented on the patient is oriented x 2. He is a little confused about what brought him to the hospital. He thinks it is a football injury. He does endorse drinking daily, beers. He states that he is currently living on his own. Patient does continue to confabulate. He tells stories and goes off tangent. He is alert and oriented x 1. repack room worker did speak with the brother. He is planning on coming in tomorrow, 10/30, filling out DPOA paperwork, and then taking the patient home with him. He is medically cleared as of today. Current Medications Current Medications Current Medications: Current Medications Generic Name Dose Route Start Last Admin Trade Name Freq PRN Reason Stop Dose Admin Acetaminophen 650 mg 10/20/24 21:21 10/29/24 02:14 Acetaminophen 325 Mg Tablet PO 650 mg Q4HR PRN Administration Pain 1 to 4, or Fever Docusate Sodium 250 - 500 mg 10/25/24 09:00 10/29/24 08:09 Docusate Sodium 250 Mg Capsule PO 250 mg DAILY SHARRON Administration Folic Acid 1 mg 10/28/24 09:00 10/29/24 08:09 Folic Acid 1 Mg Tablet PO 1 mg DAILY SHARRON Administration Hydrocortisone 1 applic 10/28/24 13:00 10/29/24 08:09 Hydrocortisone 1% Ointment 28 Gm Tube TOP 1 applic DAILY SHARRON Administration Nicotine 1 patch 10/25/24 09:00 10/29/24 08:09 Nicotine 21 Mg Patch TOP 1 patch DAILY SHARRON Administration Ondansetron HCl 4 mg 10/20/24 21:21 Ondansetron 4 Mg/2 Ml Vial IVP Q6HR PRN Nausea / Vomiting Pantoprazole Sodium 40 mg 10/21/24 07:00 10/29/24 06:32 Pantoprazole 40 Mg Tablet PO 40 mg QDAC SHARRON Administration Polyethylene Glycol 17 gm 10/25/24 09:00 10/29/24 08:09 Polyethylene Glycol 3350 17 Gm Packet PO 17 gm DAILY SHARRON Administration Multivit/Folic Acid/Iron 1 tab 10/21/24 12:00 10/28/24 12:33 Vitamin Tablet PO 1 tab QDLUNCH SHARRON Administration Senna 8.6 - 17.2 mg 10/25/24 09:00 10/29/24 08:09 Senna 8.6 Mg Tablet PO 8.6 mg DAILY SHARRON Administration Sodium Chloride 10 ml 10/21/24 01:00 10/29/24 08:11 Sodium Chloride Flush 0.9% 10 Ml Syringe IVP 10 ml 0100,0900,1700 SHARRON Administration Sodium Chloride 10 ml 10/20/24 21:21 10/27/24 05:52 Sodium Chloride Flush 0.9% 10 Ml Syringe IVP 10 ml PRN PRN Administration NEEDED PER PROVIDER ORDERS Thiamine HCl 100 mg 10/23/24 09:00 10/29/24 08:09 Thiamine 100 Mg Tablet PO 100 mg DAILY SHARRON Administration Objective Vital Signs/Intake & Output Reviewed Vital Signs: Yes Vital Signs: Vital Signs x48h Temp Pulse Resp BP Pulse Ox 10/29/24 07:37 98.1 F 95 20 100/74 97 Intake & Output: Intake & Output 10/26/24 10/27/24 10/28/24 10/29/24 23:59 23:59 23:59 23:59 Intake Total 2830 / 2830 1570 / 1570 1140 / 1140 800 / 800 Output Total 2 / 2 Balance 2830 / 2830 1570 / 1570 1140 / 1140 798 / 798 Weight (kg) 61.5 kg 58.5 kg 58.5 kg Objective General Appearance: positive No acute distress and Alert Eyes Bilateral: positive Normal inspection and PERRL ENT: positive ENT inspection nml and Pharynx nml Neck: positive Nml inspection and Trachea midline Respiratory: positive Chest non-tender and No respiratory distress Cardiovascular: positive Regular rate & rhythm and No murmur Abdomen: positive Non-tender, No organomegaly and No distention Skin: positive Color nml and Skin rash (dry, flaking around arriola, and between eyebrows) Extremities: positive Non-tender and Full ROM Neurologic/Psychiatric: positive Oriented x3 and CN's nml (2-12) Lab Results 10/29/24 05:39 10/29/24 05:39 Other Labs: Lab Results x24hrs 10/29/24 10/29/24 10/28/24 Range/Units 05:39 05:39 13:45 WBC 17.3 H (4.8-10.8) x10^3/uL RBC 2.88 L (4.70-6.10) 10^6/uL Hgb 9.9 L (14.0-18.0) g/dL Hct 29.4 L (42.0-52.0) % MCV 102.1 H (80.0-94.0) fL MCH 34.4 H (27.0-31.0) pg MCHC 33.7 (32.0-36.0) g/dL RDW 14.9 (12.0-15.0) % Plt Count 333 (130-450) 10^3/uL MPV 9.5 (7.4-11.4) fL Neut # (Auto) 12.7 H (1.5-6.6) 10^3/uL Lymph # (Auto) 1.9 (1.5-3.5) 10^3/uL Randall # (Auto) 1.9 H (0.0-1.0) 10^3/uL Eos # (Auto) 0.5 (0.0-0.7) 10^3/uL Baso # (Auto) 0.1 (0.0-0.1) 10^3/uL Absolute Nucleated RBC 0.00 x10^3/uL Band Neuts % (Manual) Not Reportable Abnorm Lymph % (Manual) Not Reportable Nucleated RBC % 0.0 /100WBC Neutrophils # (Manual) Not Reportable Lymphocytes # (Manual) Not Reportable Monocytes # (Manual) Not Reportable Eosinophils # (Manual) Not Reportable Basophils # (Manual) Not Reportable Differential Comment MANUAL=AUTO DIFF Pathologist Review Platelet Estimate NORMAL (130-450,000) (NORMAL) RBC Morph Micro Appear NORMAL APPEARANCE (NORMAL) VBG pH 7.488 H (7.31-7.41) Ionized Calcium YES 1.13 L (1.15-1.33) mmol/L Sodium 135 (135-145) mmol/L Potassium 3.4 L (3.5-4.5) mmol/L Chloride 105 (101-111) mmol/L Carbon Dioxide 24 (21-32) mmol/L Anion Gap 6.0 (6-13) BUN 7 (6-20) mg/dL Creatinine 0.5 L (0.6-1.3) mg/dL Estimated GFR (MDRD) 181 (>89) Glucose 104 (74-104) mg/dL Calcium 8.2 L (8.5-10.3) mg/dL RPR (Non Reactive) Chlam trachomat DNA PCR NEGATIVE (NEGATIVE) HIV 1&2 Ab/P24 Ag 4thGn (Non Reactive) N.gonorrhoeae DNA (PCR) NEGATIVE (NEGATIVE) T. vaginalis (PCR) NEGATIVE (NEGATIVE) 10/28/24 10/25/24 Range/Units 11:10 05:09 WBC (4.8-10.8) x10^3/uL RBC (4.70-6.10) 10^6/uL Hgb (14.0-18.0) g/dL Hct (42.0-52.0) % MCV (80.0-94.0) fL MCH (27.0-31.0) pg MCHC (32.0-36.0) g/dL RDW (12.0-15.0) % Plt Count (130-450) 10^3/uL MPV (7.4-11.4) fL Neut # (Auto) (1.5-6.6) 10^3/uL Lymph # (Auto) (1.5-3.5) 10^3/uL Randall # (Auto) (0.0-1.0) 10^3/uL Eos # (Auto) (0.0-0.7) 10^3/uL Baso # (Auto) (0.0-0.1) 10^3/uL Absolute Nucleated RBC x10^3/uL Band Neuts % (Manual) Abnorm Lymph % (Manual) Nucleated RBC % /100WBC Neutrophils # (Manual) Lymphocytes # (Manual) Monocytes # (Manual) Eosinophils # (Manual) Basophils # (Manual) Differential Comment Pathologist Review SEE SEPARATE REPORT Platelet Estimate (NORMAL) RBC Morph Micro Appear (NORMAL) VBG pH (7.31-7.41) Ionized Calcium (1.15-1.33) mmol/L Sodium (135-145) mmol/L Potassium (3.5-4.5) mmol/L Chloride (101-111) mmol/L Carbon Dioxide (21-32) mmol/L Anion Gap (6-13) BUN (6-20) mg/dL Creatinine (0.6-1.3) mg/dL Estimated GFR (MDRD) (>89) Glucose (74-104) mg/dL Calcium (8.5-10.3) mg/dL RPR Non Reactive (Non Reactive) Chlam trachomat DNA PCR (NEGATIVE) HIV 1&2 Ab/P24 Ag 4thGn Non Reactive (Non Reactive) N.gonorrhoeae DNA (PCR) (NEGATIVE) T. vaginalis (PCR) (NEGATIVE) Diagnostic Imaging Diagnostic Imaging Results: positive Final report reviewed Assessment/Plan Problem List (1) Delirium tremens: Impression: Resolved. No incidents of DTs or seizures. Continue supplemental thiamine, folic acid, multivitamin. Encouraged alcohol cessation. (2) Acute encephalopathy: Impression: Patient has episodes of mental clarity and mental fogginess. Patient seems to be confabulating which is often associated with Wernicke/Korsakoff syndrome. Patient has has a long history of alcohol use disorder > [address] head on admission was negative. HIV, syphilis, trichomonas, gonorrhea, chalmydia testing negative. (3) Leukocytosis: Impression: Patient has persistent leukocytosis, now downtrending. He is afebrile. Mildly tachycardic with heart rate in the 1-teens. Completed a course of ciprofloxacin as well as Flagyl. CT abdomen/pelvis showed possible colitis of descending and sigmoid colon. DVT of upper and lower extremities negative for any acute DVTs. Qualifiers: Leukocytosis type: unspecified Qualified Code(s): D72.829 - Elevated white blood cell count, unspecified (4) Alcohol use disorder: Impression: Continue to encourage alcohol cessation. Continue supplements as stated above. (5) Colitis: Impression: Completed a course of ciprofloxacin as well as Flagyl. CT abdomen/pelvis showed possible colitis of descending and sigmoid colon.
[2024-10-30 01:40] LABS: AMPHETAMINE SCREEN,URINE NEGATIVE (NEGATIVE); BARBITURATE SCREEN,UR NEGATIVE (NEGATIVE); BENZODIAZEPINES SCREEN, URINE POSITIVE (NEGATIVE); BUPRENORPHINE SCREEN, URINE NEGATIVE (NEGATIVE); COCAINE SCREEN URINE NEGATIVE (NEGATIVE); METHADONE SCREEN, URINE NEGATIVE (NEGATIVE); METHAMPHETAMINES SCREEN, URINE NEGATIVE (NEGATIVE); OPIATE SCREEN, URINE NEGATIVE (NEGATIVE); OXYCODONE SCREEN, URINE NEGATIVE (NEGATIVE); THC CANNABINOID SCREEN, URINE POSITIVE (NEGATIVE); TRICYCLIC ANTIDEPRESSANT,URINE NEGATIVE (NEGATIVE)
[2024-10-30 07:41] LABS: CALCIUM 8.4 mg/dL (8.5-10.3); CREATININE 0.5 mg/dL (0.6-1.3); POTASSIUM 3.4 mmol/L (3.5-4.5)
[2024-10-30 07:47] LABS: HGB - HEMOGLOBIN 10.5 g/dL (14.0-18.0); MEAN CORPUSCULAR HEMOGLOBIN 34.7 pg (27.0-31.0); MEAN CORPUSCULAR HGB CONC 33.9 g/dL (32.0-36.0); MEAN CORPUSCULAR VOLUME 102.3 fL (80.0-94.0); MEAN PLATELET VOLUME 9.4 fL (7.4-11.4); RED BLOOD COUNT 3.03 10^6/uL (4.70-6.10); WHITE BLOOD COUNT 18.5 x10^3/uL (4.8-10.8)
[2024-10-30 08:05] VITALS: BP 113/70; TEMP 98.1; O2SAT 97
--- NOTE | 2024-10-30 08:59 | Discharge Summary ---
"Discharge Summary Admit Date: 10/20/24 Discharge Date: 10/30/24 Discharging Provider: Dr. Mesfin Garnett Code Status: Attempt Resuscitation DIAGNOSES Admission Diagnoses: Alcohol dependence Rule out hypertension Severe electrolyte imbalance Leukocytosis Generalized tremors and encephalopathy Discharge Diagnoses with Status of Each Condition: Delirium tremensresolved. No incidents of DTs or seizures. Continue thiamine, folic acid on discharge. Continue to encourage alcohol cessation. Alcohol encephalopathypatient continues to have waxing and waning episodes of mental clarity and fogginess. He also seems to be confabulating. 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 CT head was negative. HIV, syphilis, trichomonas, gonorrhea, chlamydia testing was all negative. RUDS showed benzos and cannabinoids. He did receive benzos here. UA was negative for any infection. Ammonia was within normal limits. TSH was within normal limits. This may be his new baseline. Leukocytosisstable. Continues to be afebrile. Completed a course of ciprofloxacin as well as Flagyl for colitis. DVT scans were all negative. Continue to monitor in the outpatient setting. Will provide a list of PCPs. Advised to follow-up in 1 week. Alcohol use disordercontinue to encourage cessation. Continue supplements as stated above. Colitiscompleted course of ciprofloxacin and Flagyl. No abdominal tenderness. Tolerating p.o. intake well. No diarrhea or constipation noted. HPI History of Present Illness: Per Dr. Padgett: 44 yr male comes with complaints of not feeling well for last 9 days, no meds at home lives with girlfriend has been drinking in a daily basis, last drink prior to admission was initially thought to be dc home but later found to have luekocytosis and encpahopahty and is going to be admitted for observationfor impending DT as well as Leukocytosis and encphalopathy Paitent looks comfortable and resting when seen televideo CONSULTS | PROCEDURES Consultations: Surgery, social work, PT, OT Procedures: Chest x-ray, head CT, abdomen/pelvis CT, venous duplex lower extremities, venous duplex upper extremities HOSPITAL COURSE Hospital Course: Patient is a 44-year-old male with a history of chronic alcohol use who presented as he was not feeling well for the last 9 days. Last drink was prior to admission. He was found to have a leukocytosis, and as such was admitted. Over the next few days, he did experience alcohol withdrawal. He never experienced delirium tremens or seizures. CIWA protocol was placed. Initially a leukocytosis of attribute it to possible aspiration pneumonia and he was started on Unasyn. CT of the abdomen was then completed which showed possible inflammatory infectious colitis. Patient was started on Flagyl and ciprofloxacin. Unasyn was discontinued. Surgery was consulted, and they recommended follow-up after discharge. Over the course of his stay, his mentation continued to wax and wane. He has a stable leukocytosis of around 17- 18. No obvious infectious source has been determined, and he has completed his course of antibiotics. He is afebrile. STD testing was negative, UA was negative, TSH was within normal limits, RUDS was positive for just cannabinoids and benzodiazepines which he received here. He was advised extensively to stop drinking alcohol. He will be discharged with supplementation of folic acid and thiamine which he was advised to take daily. He is feeling better. His brother is planning on coming in today to sign DPOA paperwork, and he will then be going home with him. He was advised extensively to follow-up with a primary care doctor in about a week to recheck his white count. ALLERGIES Allergies Allergy/AdvReac Type Severity Reaction Status Date / Time No Known Drug Allergies Allergy Verified 10/20/24 13:29 MEDICATIONS Ambulatory Orders Medication Instructions Recorded Confirmed folic acid 1 mg tablet 1 mg PO DAILY #0 tabs 10/30/24 folic acid 1 mg tablet 1 mg PO DAILY #30 tabs 10/30/24 hydrocortisone 1 % topical ointment 1 applic topical DAILY #0 grams 10/30/24 thiamine HCl (vitamin B1) 100 mg 100 mg PO DAILY #30 tabs 10/30/24 tablet PHYSICAL EXAM AT DISCHARGE General Appearance: positive No acute distress and Alert Eyes Bilateral: positive Normal inspection, PERRL and EOMI ENT: positive ENT inspection nml and Pharynx nml Neck: positive Nml inspection, Thyroid nml and No JVD Respiratory: positive Chest non-tender, No respiratory distress and Breath sounds nml; negative Wheezes, Rales or Rhonchi Cardiovascular: positive Regular rate & rhythm, No murmur and No gallop; negative Systolic murmur or Diastolic murmur Peripheral Pulses: positive 2+ Abdomen: positive Non-tender, No organomegaly, Nml bowel sounds and No distention; negative Guarding, Hepatomegaly or Splenomegaly Back: positive Nml inspection; negative CVA tenderness (R) or CVA tenderness (L) Skin: positive Color nml, Dry and Skin rash (erythema and flaking noted on face near arriola; improving) Extremities: positive Non-tender, Full ROM and No pedal edema Neurologic/Psychiatric: positive Oriented x3, Motor nml and Mood/affect nml LABS 10/30/24 07:13 10/30/24 07:13 DIAGNOSTIC IMAGING Diagnostic Imaging Results: Final report reviewed QUALITY (Female Hip Fx Only) Was patient sent home on osteoporosis medication?: No FOLLOW UP Follow Up: Follow up with a primary care provider. TIME SPENT Time Spent in Discharge (Minutes): 40 Discharge Plan Discharge Patient Disposition: PRISON, Self Care Condition: Good Prescriptions: New hydrocortisone 1 % Ointment 1 applic topical DAILY Qty: 0 0RF folic acid 1 mg Tablet 1 mg PO DAILY Qty: 0 0RF folic acid 1 mg tablet 1 mg PO DAILY Qty: 30 0RF thiamine HCl (vitamin B1) 100 mg tablet 100 mg PO DAILY Qty: 30 0RF Activity Restrictions: No Restrictions Diet: Regular Health Concerns: You came in because you were a little confused, and you were not feeling well. You went through alcohol detox. Continue to abstain from drinking alcohol. You were found to have a high white count, which is a marker of infection. A CT scan of your stomach showed that you might have had some colitis, or inflammation of your intestines. You completed a course of antibiotics for this. Your white count is getting better, but it is still a little high. Please return if you have a fever, or feel unwell. Please see a primary care doctor in a week to recheck this to make sure it is heading in the right direction. Care Plan Goals: 1. Continue to abstain from drinking alcohol. 2. Continue your supplements, your folic acid and thiamine. 3. Follow-up with your primary care doctor in a week to recheck your white count. I have attached a list of PCPS in the area. Print Language: Tajik Patient Instructions: Addiction Social Use Signs, Alcohol Drug Use Suspect Ch Stand Alone Forms: PCP List"
== END 2024-10-30 12:53 | disposition home or self-care (01) | DRG 57 ==
LOC: ED 12:57 → ICU 12:57 → MS2 10-24 16:20
PROVIDERS: ADMIT Internal Medicine; ATTEND Internal Medicine
DX: F17.210 Nicotine dependence, cigarettes, uncomplicated; R00.0 Tachycardia, unspecified; F10.239 Alcohol dependence with withdrawal, unspecified; K52.9 Noninfective gastroenteritis and colitis, unspecified; G31.2 Degeneration of nervous system due to alcohol; E87.8 Other disorders of electrolyte and fluid balance, not elsewhere classified; K57.30 Diverticulosis of large intestine without perforation or abscess without bleeding; D72.829 Elevated white blood cell count, unspecified; F10.26 Alcohol dependence with alcohol-induced persisting amnestic disorder